=== PATIENT | male | born 1950 | race Caucasian/White ===

== ENCOUNTER 2018-03-16 15:04 | Observation (INO) ==
[2018-03-16] MEDS ORDERED: 0.9 % Sodium Chloride 1,000 ML IVC ONE ×2 (15:51→17:04)
--- NOTE | 2018-03-16 15:56 | Emergency Department Note ---
Disposition Clinical Impression: DKA (diabetic ketoacidoses) Qualifiers: Diabetes mellitus type: type 2 Diabetes mellitus complication detail: without coma Qualified Code(s): E11.10 - Type 2 diabetes mellitus with ketoacidosis without coma UTI (urinary tract infection) Qualifiers: Urinary tract infection type: acute cystitis Hematuria presence: without hematuria Qualified Code(s): N30.00 - Acute cystitis without hematuria Disposition: Admitted As Inpatient Condition: Good Referrals: Essie Ureña MD [Non-Partnered Physician] - Forms: ED Satisfaction Letter Time of Disposition: 17:28 General Adult HPI - General Stated complaint: Hyperglycemia Time Seen by Provider: 03/16/18 15:07 Source: patient Limitations: no limitations Nursing Notes Reviewed: Yes Vital Signs Reviewed: Yes - History of Present Illness HPI Narrative: 65 year old ambulatory diabetic man treated with metformin comes to the emergency room with his family because his home glucose checks were over 500. States that he never checks his sugars, but his family has urged him today secondary to him having an abnormal gait. He admits to dietary non compliance with copious candy and soda consumption. The patients complains of recent dizzyness and having a hard time finding his feet. He denies falls. He reports the dizziness as non-rotary but the feeling like he is going to fall. He complains of polydypsia and polyuria. He has an indwelling catheter. He also has a recent history in December of alcoholic delerium tremens withdrawl, last drink was in December. On that admission, he was found to have severe nutrient deficiencies and went into a 10 day coma. Other medical history includes prostate cancer, sleep apnea, and he is seeing a neurologist for neurocognitive decline. Denies fever, chills, nausea, vomiting, diarrhea. Onset (ago): day(s) Pain Scale: 0 - Related Data Allergies Allergy/AdvReac Type Severity Reaction Status Date / Time No Known Allergies Allergy Verified 03/16/18 15:17 Constitutional: Reports: as per HPI. Denies: fever, chills, weakness, weight change Eyes: Denies: eye pain, eye discharge, vision change Cardiovascular: Denies: chest pain, palpitations, dyspnea on exertion, edema, syncope Respiratory: Denies: cough, dyspnea, wheezes, hemoptysis, stridor Gastrointestinal: Denies: abdominal pain, nausea, vomiting, diarrhea, constipation, hematemesis, melena, hematochezia Genitourinary: Reports: as per HPI. Denies: urgency, dysuria, hematuria Musculoskeletal: Denies: back pain, neck pain, arthralgia, myalgia Integumentary: Denies: rash, abrasion, lesions Neurological: Denies: headache, weakness, numbness, paresthesias, confusion, abnormal gait, vertigo Psychiatric: Denies: anxiety, depression, suicidal thoughts, homicidal thoughts , auditory hallucinations, visual hallucinations Endocrine: Reports: as per HPI, polydipsia, polyuria Hematological/Lymphatic: Denies: easy bleeding, easy bruising Allergic/Immunologic: Denies: facial swelling, urticaria Past Medical History - Past Medical History Attestation: Yes The following information was validated with the patient. Source: patient Medical history: Reports: diabetes, hypertension Psychiatric history: Reports: no psych history - Social History Smoking Status: Former smoker Alcohol use: Reports: none (Alcohol addiction. Last drin december 19) Drug use: Reports: none Physical Exam - General Limitations: no limitations General appearance: alert - Head Head exam: atraumatic, normocephalic, normal inspection - Eye Eye exam: Present: normal appearance, PERRL, EOMI - ENT ENT exam: normal exam, normal oropharynx, mucous membranes moist - Neck Neck exam: Present: normal inspection, full ROM, trachea midline - Chest Chest inspection: Present: normal inspection, symmetric chest wall rise - Respiratory Respiratory exam: Present: normal lung sounds bilaterally - Cardiovascular Cardiovascular exam: Present: regular rate, normal rhythm, normal heart sounds - Abdominal Exam Abdominal exam: Present: soft, Non-Tender. Absent: tenderness, distention, guarding, rebound, rigidity - Extremities Exam Extremities exam: Present: normal inspection, full ROM. Absent: tenderness, pedal edema - Expanded Lower Extremity Exam Hip/Pelvis exam: Present: normal inspection, full ROM Lower leg exam: Present: normal inspection, full ROM - Back Exam Back exam: Present: normal inspection, full ROM. Absent: tenderness - Neurological Exam Neurological exam: Present: alert, oriented X3 - Psychiatric Psychiatric exam: Present: normal affect, normal mood Course Course Narrative: Bill patient appears well on exam. Lung sounds are clear heart tones are normal. He states he would not be here if it had not been for his glucose being elevated. He is friendly and joking throughout the exam. He states he was seen by his neurologist last week and has follow-up this week. He did have an abnormal gait at the time he saw neurology. To his understanding he has not had any imaging of his head. They did try to do an MRI at [place] for the family that the patient did not tolerate that. Did have a history of significant alcohol abuse. He has not had a drink since the beginning of December. He was recently started on Aricept however the family states they have not started this medication. Therefore this was for cognitive decline. The patient states that his gait has been unsteady for the past week. He reports it as a dizziness feeling however denies any rotary component or syncope. Lung sounds are clear heart tones are normal. Abdomen is soft and nontender. He has no swelling to his extremity is. We will get basic lab workup on patient. We did discuss the possibility of DKA. He has never been in this before. He does take metformin and is not compliant with a no sugar diet. He has an indwelling catheter with no [place] bag attached. He has this for a recurrent prostate cancer. He is supposed to have a bladder surgery prior to prostate surgery. The states that his urine has been dark with a foul odor recently. There have been no fevers - Reevaluation(s) Reevaluation #1: With a corrected sodium patient has a canine gap of 19. We will admit patient for DKA. Patient also has a UTI. We will provide patient with Rocephin at this time. We will admit patient to the hospitalist. Time: 17:05 - Consultations Consultation #1: Hospitalist accepted patient in stable condition. Time: 17:23 Vital Signs Temperature 97.7 F 03/16/18 15:17 Pulse Rate 83 03/16/18 15:17 Respiratory Rate 16 03/16/18 15:17 Blood Pressure 125/81 03/16/18 15:17 O2 Sat by Pulse Oximetry 98 03/16/18 15:17 Temperature 97.7 F 03/16/18 15:17 Pulse Rate 85 03/16/18 16:12 Respiratory Rate 18 03/16/18 16:12 Blood Pressure 125/81 03/16/18 15:17 O2 Sat by Pulse Oximetry 97 03/16/18 16:12 Oxygen Delivery Oxygen Delivery Room Air Medical Decision Making - Medical Records Medical records reviewed: Yes I reviewed the patient's medical records. - Lab Data Lab results reviewed: Yes I reviewed the patient's lab results. Result diagrams: 03/16/18 16:06 03/16/18 16:06 Lab Results 03/16/18 03/16/18 03/16/18 Range/Units 16:00 16:06 16:06 WBC 7.7 (4.3-11.1) K/mcL RBC 5.12 (4.19-5.50) M/mcL Hgb 13.7 (12.9-16.9) g/dL Hct 41.1 (37.5-50.1) % MCV 80.3 L (83.0-100.0) fL MCH 26.8 L (28.0-33.3) pg MCHC 33.3 (31.6-35.5) g/dL RDW 14.1 (11.5-14.5) % Plt Count 229 (140-400) K/mcL MPV 9.6 (9.4-12.4) fL Immature Gran % 0.3 (0-4) % Seg Neutrophils % 60.5 % Lymphocytes % 29.6 % Monocytes % 7.0 % Eosinophils % 2.2 % Basophils % 0.4 % Neutrophils # 4.7 (1.6-8.9) K/mcL Lymphocytes # 2.3 (0.6-4.6) K/mcL Monocytes # 0.5 (0.0-1.3) K/mcL Eosinophils # 0.2 (0.0-0.6) K/mcL Basophils # 0.0 (0.0-0.2) K/mcL VBG pH (7.32-7.42) pH Units VBG pCO2 (41-51) mmHg VBG pO2 (25-50) mmHg VBG HCO3 (21-27) mEq/L Sodium 127 L (136-145) mEq/L Potassium 3.9 (3.5-5.1) mEq/L Chloride 93 L (98-107) mEq/L Carbon Dioxide 23 (23-29) mEq/L BUN 14 (8-23) mg/dL Creatinine 1.16 (0.70-1.30) mg/dL Est GFR ( Amer) > 60 (> 60) Est GFR (Non-Af Amer) > 60 (> 60) BUN/Creatinine Ratio 12 (6-26) Glucose 602 H* (70-105) mg/dL Calculated Osmolality 292 (280-300) Calcium 9.8 (8.6-10.3) mg/dL Phosphorus 3.2 (2.7-4.5) mg/dL Magnesium 1.6 (1.6-2.6) mg/dL Total Bilirubin 0.6 (0.3-1.0) mg/dL AST 17 (13-39) Units/L ALT 18 (7-52) Units/L Alkaline Phosphatase 135 H (34-104) Units/L Ammonia (16-53) mcmol/L Serum Total Protein 7.9 (6.4-8.9) g/dL Albumin 4.1 (3.5-5.7) g/dL Globulin 3.8 H (2.4-3.5) g/dL Albumin/Globulin Ratio 1.1 (1.1-2.2) Beta-Hydroxybutyric Acd (0.02-0.27) mmol/L Urine Color Yellow (Yellow) Urine Clarity Cloudy A (Clear) Urine pH 6.0 (5.0-8.0) pH Units Ur Specific [place] > 1.030 H (1.010-1.025) Urine Protein Trace (Neg-Trace) mg/dL Urine Glucose (UA) >=1000 H (Normal) mg/dL Urine Ketones Trace H (Negative) mg/dL Urine Blood Trace H (Negative) Urine Nitrite Positive A (Negative) Urine Bilirubin Negative (Negative) Urine Urobilinogen Normal (Normal) mg/dL Ur Leukocyte Esterase Moderate H (Negative) 03/16/18 03/16/18 03/16/18 Range/Units 16:06 16:06 16:23 WBC (4.3-11.1) K/mcL RBC (4.19-5.50) M/mcL Hgb (12.9-16.9) g/dL Hct (37.5-50.1) % MCV (83.0-100.0) fL MCH (28.0-33.3) pg MCHC (31.6-35.5) g/dL RDW (11.5-14.5) % Plt Count (140-400) K/mcL MPV (9.4-12.4) fL Immature Gran % (0-4) % Seg Neutrophils % % Lymphocytes % % Monocytes % % Eosinophils % % Basophils % % Neutrophils # (1.6-8.9) K/mcL Lymphocytes # (0.6-4.6) K/mcL Monocytes # (0.0-1.3) K/mcL Eosinophils # (0.0-0.6) K/mcL Basophils # (0.0-0.2) K/mcL VBG pH 7.31 L (7.32-7.42) pH Units VBG pCO2 48 (41-51) mmHg VBG pO2 41 (25-50) mmHg VBG HCO3 25 (21-27) mEq/L Sodium (136-145) mEq/L Potassium (3.5-5.1) mEq/L Chloride (98-107) mEq/L Carbon Dioxide (23-29) mEq/L BUN (8-23) mg/dL Creatinine (0.70-1.30) mg/dL Est GFR ( Amer) (> 60) Est GFR (Non-Af Amer) (> 60) BUN/Creatinine Ratio (6-26) Glucose (70-105) mg/dL Calculated Osmolality (280-300) Calcium (8.6-10.3) mg/dL Phosphorus (2.7-4.5) mg/dL Magnesium (1.6-2.6) mg/dL Total Bilirubin (0.3-1.0) mg/dL AST (13-39) Units/L ALT (7-52) Units/L Alkaline Phosphatase (34-104) Units/L Ammonia 30 (16-53) mcmol/L Serum Total Protein (6.4-8.9) g/dL Albumin (3.5-5.7) g/dL Globulin (2.4-3.5) g/dL Albumin/Globulin Ratio (1.1-2.2) Beta-Hydroxybutyric Acd 0.90 H (0.02-0.27) mmol/L Urine Color (Yellow) Urine Clarity (Clear) Urine pH (5.0-8.0) pH Units Ur Specific [place] (1.010-1.025) Urine Protein (Neg-Trace) mg/dL Urine Glucose (UA) (Normal) mg/dL Urine Ketones (Negative) mg/dL Urine Blood (Negative) Urine Nitrite (Negative) Urine Bilirubin (Negative) Urine Urobilinogen (Normal) mg/dL Ur Leukocyte Esterase (Negative) - Radiology Data Radiology results reviewed: Yes I reviewed the patient's radiology results. Chest X-Ray 03/16/18 15:39 IMPRESSION: No acute process. D/ / Kev Plata MD / Kev Plata MD Interpreting Provider: Kev Plata MD Head CT 03/16/18 15:44 IMPRESSION: No acute intracranial abnormality. D/ / Caitie Villar MD / Caitie Villar MD Interpreting Provider: Caitie Villar MD - EKG Data EKG #1 EKG attestation: Yes I reviewed and interpreted this EKG. EKG results narrative: Normal sinus rhythm at a rate of 78. AK interval is 190. QRS duration is 85. QT is 382. QTC is 436. No signs of acute ischemia. No previous EKG to compare to. Good R-wave progression. Does have occasional PAC.
--- NOTE | 2018-03-16 16:06 | Emergency Department Note ---
Disposition Clinical Impression: DKA (diabetic ketoacidoses), UTI (urinary tract infection) Disposition: Admitted As Inpatient Referrals: Essie Ureña MD [Primary Care Provider] - Forms: ED Satisfaction Letter General Adult HPI - General Chief complaint: ED Dizziness Stated complaint: Hyperglycemia Time Seen by Provider: 03/16/18 15:07 Source: patient Limitations: no limitations - History of Present Illness Pain Scale: 0 - Related Data Allergies Allergy/AdvReac Type Severity Reaction Status Date / Time No Known Allergies Allergy Verified 03/16/18 15:17 Past Medical History - Past Medical History Medical history: Reports: diabetes, hypertension Psychiatric history: Reports: no psych history - Social History Smoking Status: Never smoker Alcohol use: Reports: none Drug use: Reports: none Physical Exam - General Limitations: no limitations General appearance: alert Course Vital Signs Temperature 97.7 F 03/16/18 15:17 Pulse Rate 83 03/16/18 15:17 Respiratory Rate 16 03/16/18 15:17 Blood Pressure 125/81 03/16/18 15:17 O2 Sat by Pulse Oximetry 98 03/16/18 15:17 Temperature 97.7 F 03/16/18 15:17 Pulse Rate 85 03/16/18 16:12 Respiratory Rate 18 03/16/18 16:12 Blood Pressure 125/81 03/16/18 15:17 O2 Sat by Pulse Oximetry 97 03/16/18 16:12 Oxygen Delivery Oxygen Delivery Room Air Medical Decision Making - MDM Narrative Medical decision making narrative: pt found to be in DKA. will start insulin gtt. admit tx for UTI with rocephin - Medical Records Medical records reviewed: Yes I reviewed the patient's medical records. - Lab Data Lab results reviewed: Yes I reviewed the patient's lab results. Result diagrams: 03/16/18 16:06 03/16/18 16:06 Lab Results 03/16/18 03/16/18 03/16/18 Range/Units 16:00 16:06 16:06 WBC 7.7 (4.3-11.1) K/mcL RBC 5.12 (4.19-5.50) M/mcL Hgb 13.7 (12.9-16.9) g/dL Hct 41.1 (37.5-50.1) % MCV 80.3 L (83.0-100.0) fL MCH 26.8 L (28.0-33.3) pg MCHC 33.3 (31.6-35.5) g/dL RDW 14.1 (11.5-14.5) % Plt Count 229 (140-400) K/mcL MPV 9.6 (9.4-12.4) fL Immature Gran % 0.3 (0-4) % Seg Neutrophils % 60.5 % Lymphocytes % 29.6 % Monocytes % 7.0 % Eosinophils % 2.2 % Basophils % 0.4 % Neutrophils # 4.7 (1.6-8.9) K/mcL Lymphocytes # 2.3 (0.6-4.6) K/mcL Monocytes # 0.5 (0.0-1.3) K/mcL Eosinophils # 0.2 (0.0-0.6) K/mcL Basophils # 0.0 (0.0-0.2) K/mcL VBG pH (7.32-7.42) pH Units VBG pCO2 (41-51) mmHg VBG pO2 (25-50) mmHg VBG HCO3 (21-27) mEq/L Sodium 127 L (136-145) mEq/L Potassium 3.9 (3.5-5.1) mEq/L Chloride 93 L (98-107) mEq/L Carbon Dioxide 23 (23-29) mEq/L BUN 14 (8-23) mg/dL Creatinine 1.16 (0.70-1.30) mg/dL Est GFR ( Amer) > 60 (> 60) Est GFR (Non-Af Amer) > 60 (> 60) BUN/Creatinine Ratio 12 (6-26) Glucose 602 H* (70-105) mg/dL Calculated Osmolality 292 (280-300) Calcium 9.8 (8.6-10.3) mg/dL Phosphorus 3.2 (2.7-4.5) mg/dL Magnesium 1.6 (1.6-2.6) mg/dL Total Bilirubin 0.6 (0.3-1.0) mg/dL AST 17 (13-39) Units/L ALT 18 (7-52) Units/L Alkaline Phosphatase 135 H (34-104) Units/L Ammonia (16-53) mcmol/L Serum Total Protein 7.9 (6.4-8.9) g/dL Albumin 4.1 (3.5-5.7) g/dL Globulin 3.8 H (2.4-3.5) g/dL Albumin/Globulin Ratio 1.1 (1.1-2.2) Beta-Hydroxybutyric Acd (0.02-0.27) mmol/L Urine Color Yellow (Yellow) Urine Clarity Cloudy A (Clear) Urine pH 6.0 (5.0-8.0) pH Units Ur Specific [place] > 1.030 H (1.010-1.025) Urine Protein Trace (Neg-Trace) mg/dL Urine Glucose (UA) >=1000 H (Normal) mg/dL Urine Ketones Trace H (Negative) mg/dL Urine Blood Trace H (Negative) Urine Nitrite Positive A (Negative) Urine Bilirubin Negative (Negative) Urine Urobilinogen Normal (Normal) mg/dL Ur Leukocyte Esterase Moderate H (Negative) 03/16/18 03/16/18 03/16/18 Range/Units 16:06 16:06 16:23 WBC (4.3-11.1) K/mcL RBC (4.19-5.50) M/mcL Hgb (12.9-16.9) g/dL Hct (37.5-50.1) % MCV (83.0-100.0) fL MCH (28.0-33.3) pg MCHC (31.6-35.5) g/dL RDW (11.5-14.5) % Plt Count (140-400) K/mcL MPV (9.4-12.4) fL Immature Gran % (0-4) % Seg Neutrophils % % Lymphocytes % % Monocytes % % Eosinophils % % Basophils % % Neutrophils # (1.6-8.9) K/mcL Lymphocytes # (0.6-4.6) K/mcL Monocytes # (0.0-1.3) K/mcL Eosinophils # (0.0-0.6) K/mcL Basophils # (0.0-0.2) K/mcL VBG pH 7.31 L (7.32-7.42) pH Units VBG pCO2 48 (41-51) mmHg VBG pO2 41 (25-50) mmHg VBG HCO3 25 (21-27) mEq/L Sodium (136-145) mEq/L Potassium (3.5-5.1) mEq/L Chloride (98-107) mEq/L Carbon Dioxide (23-29) mEq/L BUN (8-23) mg/dL Creatinine (0.70-1.30) mg/dL Est GFR ( Amer) (> 60) Est GFR (Non-Af Amer) (> 60) BUN/Creatinine Ratio (6-26) Glucose (70-105) mg/dL Calculated Osmolality (280-300) Calcium (8.6-10.3) mg/dL Phosphorus (2.7-4.5) mg/dL Magnesium (1.6-2.6) mg/dL Total Bilirubin (0.3-1.0) mg/dL AST (13-39) Units/L ALT (7-52) Units/L Alkaline Phosphatase (34-104) Units/L Ammonia 30 (16-53) mcmol/L Serum Total Protein (6.4-8.9) g/dL Albumin (3.5-5.7) g/dL Globulin (2.4-3.5) g/dL Albumin/Globulin Ratio (1.1-2.2) Beta-Hydroxybutyric Acd 0.90 H (0.02-0.27) mmol/L Urine Color (Yellow) Urine Clarity (Clear) Urine pH (5.0-8.0) pH Units Ur Specific [place] (1.010-1.025) Urine Protein (Neg-Trace) mg/dL Urine Glucose (UA) (Normal) mg/dL Urine Ketones (Negative) mg/dL Urine Blood (Negative) Urine Nitrite (Negative) Urine Bilirubin (Negative) Urine Urobilinogen (Normal) mg/dL Ur Leukocyte Esterase (Negative) - Radiology Data Radiology results reviewed: Yes I reviewed the patient's radiology results. Critical Care Time Critical Care Time: Yes Total Critical Care Time: 35 Attestation: CC time of 35 min spent in med management of DKA; Gap of 19. Attestation Statement - Attestation Attestation: I examined this patient and my medical decision-making was reviewed with the Resident Physician. I agree with the documented findings, disposition and treatment plan as described except to the extent set forth below. 67-year-old male presents emergency room for concerns for elevated blood sugars. He is a type II diabetic. Sugars are running in the 500s associated with polyuria and polydipsia. Denies any vomiting. No diarrhea. Patient will be worked up for possible DKA versus isolated hyperglycemia. He also admits that he has been somewhat unsteady with his gait and tripping recently. Denies any focal motor or sensory deficits. No chest pain or shortness of breath. He also currently is getting treatment for bladder problems secondary to prostate cancer. He says he follows with a urologist in [place] he thought but cannot remember his name. He does have a catheter in place. This is chronic for him. He looks well otherwise. His vitals are stable. EKG did not show any significant findings. We will check screening lab work as well as workup for possible DKA.
[2018-03-16 16:24] LABS: Basophils % 0.4 %; Eosinophils # 0.2 K/mcL (0.0-0.6); Eosinophils % 2.2 %; Hematocrit 41.1 % (37.5-50.1); Hemoglobin 13.7 g/dL (12.9-16.9); Immature Granulocytes % 0.3 % (0-4); Lymphocytes # 2.3 K/mcL (0.6-4.6); Lymphocytes % 29.6 %; Mean Corpuscular HGB Conc 33.3 g/dL (31.6-35.5); Mean Corpuscular Hemoglobin 26.8 pg (28.0-33.3); Mean Corpuscular Volume 80.3 fL (83.0-100.0); Mean Platelet Volume 9.6 fL (9.4-12.4); Monocytes # 0.5 K/mcL (0.0-1.3); Neutrophils # 4.7 K/mcL (1.6-8.9); Platelet Count 229 K/mcL (140-400); Red Blood Count 5.12 M/mcL (4.19-5.50); Red Cell Distribution Width 14.1 % (11.5-14.5); Segmented Neutrophils % 60.5 %
[2018-03-16 16:26] LABS: VBG HCO3 25 mEq/L (21-27); VBG PCO2 48 mmHg (41-51); VBG PH 7.31 pH Units (7.32-7.42); VBG PO2 41 mmHg (25-50)
[2018-03-16 16:37] LABS: Color,Urine Yellow (Yellow)
[2018-03-16 16:38] LABS: Bilirubin,Urine Negative (Negative); Blood,Urine Trace (Negative); Clarity,Urine Cloudy (Clear); Glucose,Urine (UA) >=1000 mg/dL (Normal); Ketones,Urine Trace mg/dL (Negative); Leukocyte Esterase,Urine Moderate (Negative); Nitrite,Urine Positive (Negative); Protein,Urine Trace mg/dL (Neg-Trace); Specific Gravity,Urine > 1.030 (1.010-1.025); Urobilinogen,Urine Normal (Normal)
[2018-03-16 16:57] LABS: Alanine Aminotransferase 18 Units/L (7-52); Albumin 4.1 g/dL (3.5-5.7); Albumin/Globulin Ratio 1.1 (1.1-2.2); Alkaline Phosphatase 135 Units/L (34-104); Aspartate Amino Transferase 17 Units/L (13-39); BUN/Creatinine Ratio 12 (6-26); Bilirubin,Total 0.6 mg/dL (0.3-1.0); Blood Urea Nitrogen 14 mg/dL (8-23); Calcium 9.8 mg/dL (8.6-10.3); Carbon Dioxide 23 mEq/L (23-29); Chloride 93 mEq/L (98-107); Globulin 3.8 g/dL (2.4-3.5); Glucose 602 mg/dL (70-105); Magnesium 1.6 mg/dL (1.6-2.6); Osmolality,Calculated 292 (280-300); Phosphorous 3.2 mg/dL (2.7-4.5); Potassium 3.9 mEq/L (3.5-5.1); Sodium 127 mEq/L (136-145); Total Protein 7.9 g/dL (6.4-8.9); eGFR For Non-African Americans > 60 (> 60)
[2018-03-16] MEDS ORDERED: Insulin Regular, Human 100 UNIT/ML SQ ONE (17:00)
[2018-03-16 17:03] LABS: Bacteria,Urine Few per hpf (None-Few); Hyaline Casts,Urine None Seen per lpf (None-Few); Squamous Epithelial Cell,Urine Many per lpf (None-Few); WBC,Urine TNTC per hpf (0-3)
[2018-03-16] MEDS ORDERED: *HR* Dextrose 50 % in Water (Syg) 50 ML SYRINGE IVP PRN ×3 (17:03→21:12)
[2018-03-16] MEDS ORDERED: cefTRIAXone 1,000 MG in Water for inj. (sterile) 20 ML 10 ML IVP ONE (17:06)
[2018-03-16 17:13] LABS: RBC,Urine 0-3 per hpf (0-3)
[2018-03-16] MEDS ORDERED: Insulin Human Regular 100 UNIT in 0.9 % Sodium Chloride 100 ML IVC SCH (17:15)
[2018-03-16] MEDS ORDERED: Naloxone 0.4 MG/ML INJ IVP PRN (17:40)
[2018-03-16] MEDS ORDERED: D5% in 0.45% NACL 1,000 ML IVC PRN (17:45)
[2018-03-16] MEDS ORDERED: Insulin Regular, Human 100 UNIT/ML IV PRN (17:45)
--- NOTE | 2018-03-16 18:14 | Internal Med History&Physical ---
Date of Encounter: 03/16/18 Time of Encounter: 18:00 Internal Medicine - H&P: HPI Chief complaint: Worsening thirst, tiredness and weakness History of present illness: Mr. Arauz is a 67 year old male with pmh of type 2 diabetes, hypertension, prostate cancer presenting with complaints of recent dizziness , worsening thirst and increased fluid consumption for about a week. Patient's notes that he has been progressively getting weaker and she says he has been drinking a lot fof water lately. On the recommendation of her daughter, she checked his blood sugar and noted it to be 590. She called her PCP who recommended he be brought to the ER. He admits to fatigue and dizziness. Denies any abdominal pain , nausea, vomiting, fevers and chills. He has an indwelling catheter that was placed on february 24 pending urologic intervention for urinary retention due to his prostate CA. In the ER, he was started on an insulin drip and is being admitted for further management Past Med Surg Social Fam HX - Past Medical History Medical history: diabetes, hypertension Psychiatric history: no psych history - Social History Smoking Status: Former smoker Alcohol use: none (Alcohol addiction. Last drin december 19) Drug use: none Internal Medicine - H&P: Meds Aspirin Enteric Coated [Aspirin EC] 81 mg PO DAILY 03/16/18 [History] Atenolol [Tenormin] 50 mg PO BID 03/16/18 [History] Cholecalciferol (D-3) [Vitamin D] 2,000 unit PO DAILY 03/16/18 [History] Metformin HCl [Metformin HCl ER] 500 mg PO BID 03/16/18 [History] Multivitamin [One Daily Essential] 1 tab PO DAILY 03/16/18 [History] Pantoprazole Sodium 40 mg PO DAILY 03/16/18 [History] amLODIPine [Norvasc] 5 mg PO DAILY 03/16/18 [History] 3 Allergy/AdvReac Type Severity Reaction Status Date / Time No Known Allergies Allergy Verified 03/16/18 17:32 All Systems PM: A 10-system review of systems was performed and is negative for pertinent findings except as documented above in the HPI. - Constitutional Constitutional: lethargy, malaise, weakness, no chills, no fever(s), no night sweats Additional comments: Increased thirst - EENT Eyes: no change in vision, no discharge, no pain, no photophobia Ears: no ear discharge, no ear pain, no tinnitus Nose, mouth and throat: no dysphagia, no nasal discharge, no neck pain, no sore throat - Cardiovascular Cardiovascular ROS IM: no chest pain, no diaphoresis, no dyspnea, no lightheadedness, no palpitations, no syncope - Respiratory Respiratory: no cough, no dyspnea, no wheezing, no excessive phlegm production - Gastrointestinal Gastrointestinal: no abdominal pain, no diarrhea, no hematemesis, no hematochezia, no melena, no nausea, no vomiting - Genitourinary Genitourinary ROS male: difficulty urinating - Musculoskeletal Musculoskeletal ROS IM: no numbness, no tingling - Integumentary Integumentary IM: no rash, no unusual bruising - Neurological Neurological ROS: no confusion, no convulsions, no focal weakness, no numbness, no tingling, no tremor(s) - Hematologic/Lymphatic Hematologic/Lymphatic: no easy bruising - Constitutional Vitals: Temp Pulse Resp BP Pulse Ox 97.7 F 76 18 132/79 100 03/16/18 15:17 03/16/18 17:31 03/16/18 17:31 03/16/18 17:31 03/16/18 17:31 Exam: Appears lethargic - Head Head exam: Present: atraumatic, normocephalic - Eye Eye exam: Present: PERRL, conjuntiva pink, sclera anicteric Pupils: Present: PERRL - Neck Neck exam general surgery: Present: supple, trachea midline. Absent: lymphadenopathy - Respiratory Respiratory exam: Present: CTAB. Absent: accessory muscle use, rales, rhonchi, wheezes - Cardiovascular Cardiovascular exam: Present: RRR, +S1, +S2. Absent: diastolic murmur, gallop, rubs, systolic murmur - GI/Abdominal GI/Abdominal exam: Present: normal bowel sounds, soft, no peritoneal signs. Absent: distended, tenderness - Additional comments: catheter in place - Extremities Exam Extremities exam: Present: warm, radial pulses palpable and symmetrical. Absent : calf tenderness, cyanotic, pedal edema - Neurological Exam Neurological exam: Present: CN II-XII intact, oriented X3, no focal deficits. Absent: pronater drift, facial droop, speech deficit - Skin Skin exam: Present: dry, intact Internal Med - H&P Results - Labs CBC & Chem 7: 03/16/18 16:06 03/16/18 16:06 Labs: Short CBC 03/16/18 Range/Units 16:06 WBC 7.7 (4.3-11.1) K/mcL Hgb 13.7 (12.9-16.9) g/dL Hct 41.1 (37.5-50.1) % Plt Count 229 (140-400) K/mcL Neutrophils # 4.7 (1.6-8.9) K/mcL BMP 03/16/18 16:06 Sodium 127 L Potassium 3.9 Chloride 93 L Carbon Dioxide 23 BUN 14 Creatinine 1.16 Glucose 602 H* Calcium 9.8 Liver Function 03/16/18 Range/Units 16:06 Total Bilirubin 0.6 (0.3-1.0) mg/dL AST 17 (13-39) Units/L ALT 18 (7-52) Units/L Alkaline Phosphatase 135 H (34-104) Units/L Albumin 4.1 (3.5-5.7) g/dL Urine 03/16/18 Range/Units 16:00 Urine Color Yellow (Yellow) Urine Clarity Cloudy A (Clear) Urine pH 6.0 (5.0-8.0) pH Units Ur Specific [place] > 1.030 H (1.010-1.025) Urine Protein Trace (Neg-Trace) mg/dL Urine Glucose (UA) >=1000 H (Normal) mg/dL - ABG Interpretation ABG results: 03/16/18 16:23 VBG pH 7.31 L VBG pCO2 48 VBG pO2 41 VBG HCO3 25 - Impressions ITS Impressions Chest X-Ray 03/16/18 15:39 IMPRESSION: No acute process. D/ / Kev Plata MD / Kev Plata MD Interpreting Provider: Kev Plata MD Head CT 03/16/18 15:44 IMPRESSION: No acute intracranial abnormality. D/ / Caitie Villar MD / Caitie Villar MD Interpreting Provider: Caitie Villar MD - Assessment and plan (1) Uncontrolled type 2 diabetes mellitus with hyperglycemia Current Visit: Yes Status: Acute Assessment and plan: Pt has elevated blood sugar in the 600s with impending DKA. Has elevated beta hydroxybutyric acid but normal anion gap Start on DKA protocol with insulin drip. Obtain hemoglobin A1c. Monitor fingersticks and transition to subcutaneous insulin once sugars drop below 250 (2) Complicated urinary tract infection Current Visit: Yes Status: Acute Assessment and plan: Has indwelling catheter with multiple WBC. Will start on Iv ceftriaxone (3) Hypertension Current Visit: Yes Status: Acute Assessment and plan: Start on amlodipine and atenolol Qualifiers: Qualified Code(s): I10 - Essential (primary) hypertension (4) DVT prophylaxis Current Visit: Yes Status: Acute Assessment and plan: On heparin sc - Time Spent With Patient Total time spent is greater than 50% in coordination of care (as documented) at patient's floor/unit and/or counseling patient:
[2018-03-16 18:22] LABS: Estimated Average Glucose 309 mg/dl; Hemoglobin A1C 12.4 %
[2018-03-16 20:48] LABS: BUN/Creatinine Ratio 11 (6-26); Blood Urea Nitrogen 11 mg/dL (8-23); Calcium 9.3 mg/dL (8.6-10.3); Carbon Dioxide 24 mEq/L (23-29); Chloride 102 mEq/L (98-107); Glucose 316 mg/dL (70-105); Osmolality,Calculated 289 (280-300); Potassium 3.3 mEq/L (3.5-5.1); Sodium 134 mEq/L (136-145); eGFR For Non-African Americans > 60 (> 60)
[2018-03-16] MEDS ORDERED: Dextrose Gel 15 GM/37.5 ML TUBE PO PRN ×2 (21:12)
[2018-03-16] MEDS ORDERED: D5% in Water 1,000 ML IVC PRN (21:12)
[2018-03-16] MEDS ORDERED: Insulin DETEMIR 100 UNIT/ML X5UNITS SQ SCH (21:15)
[2018-03-16] MEDS: Insulin LISPRO 300 UNITS/3 ML VIAL SQ SCH (22:26)
[2018-03-17] MEDS ORDERED: *HR* Heparin 5,000 UNIT/ML VIAL SQ SCH (06:00)
[2018-03-17 06:13] LABS: Basophils % 0.6 %; Eosinophils # 0.2 K/mcL (0.0-0.6); Eosinophils % 4.1 %; Hematocrit 36.6 % (37.5-50.1); Hemoglobin 12.2 g/dL (12.9-16.9); Immature Granulocytes % 0.2 % (0-4); Lymphocytes # 1.8 K/mcL (0.6-4.6); Mean Corpuscular HGB Conc 33.3 g/dL (31.6-35.5); Mean Corpuscular Hemoglobin 26.8 pg (28.0-33.3); Mean Corpuscular Volume 80.3 fL (83.0-100.0); Mean Platelet Volume 9.3 fL (9.4-12.4); Monocytes # 0.5 K/mcL (0.0-1.3); Monocytes % 9.1 %; Neutrophils # 2.6 K/mcL (1.6-8.9); Platelet Count 184 K/mcL (140-400); Red Blood Count 4.56 M/mcL (4.19-5.50); Red Cell Distribution Width 14.1 % (11.5-14.5)
[2018-03-17 06:20] LABS: BUN/Creatinine Ratio 8 (6-26); Blood Urea Nitrogen 9 mg/dL (8-23); Calcium 9.5 mg/dL (8.6-10.3); Carbon Dioxide 23 mEq/L (23-29); Chloride 107 mEq/L (98-107); Glucose 223 mg/dL (70-105); Magnesium 1.7 mg/dL (1.6-2.6); Osmolality,Calculated 290 (280-300); Phosphorous 2.9 mg/dL (2.7-4.5); Potassium 3.7 mEq/L (3.5-5.1); Sodium 137 mEq/L (136-145); eGFR For Non-African Americans > 60 (> 60)
[2018-03-17] MEDS: Insulin LISPRO 300 UNITS/3 ML VIAL SQ SCH ×4 (08:42→12:22)
--- NOTE | 2018-03-17 08:57 | Internal Med Progress Note ---
Hospitalist Progress Note - Encounter Date of Encounter: 03/17/18 Time of Encounter: 09:00 - Exam Vitals: Temp Pulse Resp BP Pulse Ox 98.4 F 70 19 148/83 97 03/17/18 07:03 03/17/18 07:03 03/17/18 07:03 03/17/18 07:03 03/17/18 07:03 - Time Spent with Patient Total time spent is greater than 50% in coordination of care (as documented) at patient's floor/unit and/or counseling patient: Internal Medicine: Result - Labs CBC & Chem 7: 03/17/18 05:49 03/17/18 05:49 Labs: Short CBC 03/17/18 Range/Units 05:49 WBC 5.1 (4.3-11.1) K/mcL Hgb 12.2 L D (12.9-16.9) g/dL Hct 36.6 L (37.5-50.1) % Plt Count 184 (140-400) K/mcL Neutrophils # 2.6 (1.6-8.9) K/mcL BMP 03/16/18 03/17/18 20:15 05:49 Sodium 134 L 137 Potassium 3.3 L 3.7 Chloride 102 107 Carbon Dioxide 24 23 BUN 11 9 Creatinine 1.02 1.06 Glucose 316 H 223 H Calcium 9.3 9.5 Consult Discharge Plan - Plan Referrals: Essie Ureña MD [Primary Care Provider] -
[2018-03-17] MEDS ORDERED: Multivit/Ca/Min/Fe/FA 1 TAB TABLET PO SCH (09:00)
[2018-03-17] MEDS ORDERED: Aspirin Enteric Coated 81 MG Tablet PO SCH (09:00)
[2018-03-17] MEDS ORDERED: Cholecalciferol (D-3) 1,000 UNIT TABLET PO SCH (09:00)
[2018-03-17] MEDS ORDERED: amLODIPine 5 MG TABLET PO SCH (09:00)
[2018-03-17 10:05] VITALS: BP 149/86
--- NOTE | 2018-03-17 12:11 | Discharge Summary ---
<Tim Levi - Last Filed: 03/17/18 16:18> Date of Encounter: 03/17/18 Time of Encounter: 10:00 - Discharge Diagnosis (1) DKA (diabetic ketoacidoses) Priority: Primary Status: Acute Qualifiers: Diabetes mellitus type: type 2 Diabetes mellitus complication detail: without coma Qualified Code(s): E11.10 - Type 2 diabetes mellitus with ketoacidosis without coma (2) Hypertension Priority: Secondary Status: Acute Qualifiers: Qualified Code(s): I10 - Essential (primary) hypertension (3) UTI (urinary tract infection) Priority: Secondary Status: Acute Qualifiers: Urinary tract infection type: acute cystitis Hematuria presence: without hematuria Qualified Code(s): N30.00 - Acute cystitis without hematuria (4) Uncontrolled type 2 diabetes mellitus with hyperglycemia Priority: Secondary Status: Acute Hospital course: Mr. Arauz is a 67 year old male PMHx DM2, HTN, prostate cancer, presents with dizziness, thirst, polydipsia x 1 week. blood sugar at home was 590. He also admitted to fatigue, dizziness, but denied abdominal pain, n/v/f/c. Patient has an indwelling catheter pending urologic intervention for urinary retention 2/2 prostate CA. CXR and CT head on admission were unremarkable. Laboratory work demonstrated patient had symptoms of DKA with increasing normal gap. Patient was treated with 2L NS, Insulin drip + glucose and eventually switched to SQ insulin. His symptoms have resolved and he is back to baseline. His K+ is stable at 3.7. HbA1c was found to be 12.4 compared to HbA1c = 6 that was taken 2 months ago. Patient was also found to have UTI with indwelling catheter and started on Ceftriaxone day #1, pending culture. Patient is stable and would like to go home. We will discharge him with omnicef 300mg PO BID for 5 days and start insulin therapy due to HbA1c > 10 with Aspart and levemir. Follow up with outpatient PCP for better glycemic control Discharge discussed with: patient, family Time spent discussing smoking cessation with patient: 3 to 10 minutes - Time Spent with Patient Total time spent providing and/or coordinating discharge services: Greater than 30 minutes - Discharge Medications Prescriptions: Cefdinir [Omnicef] 300 mg PO BID 5 Days #10 capsule Insulin ASPART [Novolog Flexpen] 7 unit SQ TID #5 insuln.pen Insulin DETEMIR [Levemir Flextouch] 20 unit SQ DAILY #5 insuln.pen Home Medications: Aspirin Enteric Coated [Aspirin EC] 81 mg PO DAILY 03/16/18 [History] Atenolol [Tenormin] 50 mg PO BID 03/16/18 [History] Cholecalciferol (D-3) [Vitamin D] 2,000 unit PO DAILY 03/16/18 [History] Metformin HCl [Metformin HCl ER] 500 mg PO BID 03/16/18 [History] Multivitamin [One Daily Essential] 1 tab PO DAILY 03/16/18 [History] Pantoprazole Sodium 40 mg PO DAILY 03/16/18 [History] amLODIPine [Norvasc] 5 mg PO DAILY 03/16/18 [History] Cefdinir [Omnicef] 300 mg PO BID 5 Days #10 capsule 03/17/18 [Rx] Insulin ASPART [Novolog Flexpen] 7 unit SQ TID #5 insuln.pen 03/17/18 [Rx] Insulin DETEMIR [Levemir Flextouch] 20 unit SQ DAILY #5 insuln.pen 03/17/18 [Rx] Allergies/Adverse Reactions: 3 Allergy/AdvReac Type Severity Reaction Status Date / Time No Known Allergies Allergy Verified 03/16/18 17:32 Date of admission: 03/16/18 19:39 Primary care physician: Essie Ureña MD Discharging clinician: Tim Levi Anticipated date of discharge: 03/17/18 - Constitutional Vitals: Temp Pulse Resp BP Pulse Ox 98.3 F 73 17 149/86 96 03/17/18 10:03 03/17/18 10:03 03/17/18 10:03 03/17/18 10:03 03/17/18 10:03 Exam: - Head Head exam: Present: atraumatic, normocephalic - Eye Eye exam: Present: conjuntiva pink, sclera anicteric - Neck Neck exam general surgery: Present: supple, trachea midline. Absent: lymphadenopathy - Respiratory Respiratory exam: Present: CTAB. Absent: accessory muscle use, rales, rhonchi, wheezes - Cardiovascular Cardiovascular exam: Present: RRR, +S1, +S2. Absent: diastolic murmur, gallop, rubs, systolic murmur - GI/Abdominal GI/Abdominal exam: Present: normal bowel sounds, soft, no peritoneal signs. Absent: distended, tenderness - Additional comments: catheter in place - Extremities Exam Extremities exam: Present: warm, radial pulses palpable and symmetrical. Absent : calf tenderness, cyanotic, pedal edema - Neurological Exam Neurological exam: Present: CN II-XII intact, oriented X3, no focal deficits. Absent: pronater drift, facial droop, speech deficit - Skin Skin exam: Present: dry, intact - Patient Status Disposition: Home, Self-Care Condition: Good Functional capacity at discharge: independent ambulation Overall status at discharge: patient is back to baseline - Discharge Instructions Instructions: Cefdinir (By mouth), Insulin Aspart, Recombinant (Injection), Insulin Detemir (Injection), Insulin Glargine (Injection), How to Check Your Blood Sugar (DC), Diabetes Mellitus Type 2 in Adults (GEN), Giving an Insulin Injection (DC) Follow Up With: Essie Ureña MD [Primary Care Provider] - - Diet and Activity Activity: increase activity as tolerated Diet: advance to your usual diet <Regan Schaeffer - Last Filed: 03/17/18 17:42> Date of Encounter: 03/17/18 - Discharge Diagnosis (1) Uncontrolled type 2 diabetes mellitus with hyperglycemia Status: Acute (2) Complicated urinary tract infection Status: Acute (3) Hypertension Status: Acute Qualifiers: Qualified Code(s): I10 - Essential (primary) hypertension (4) DVT prophylaxis Status: Acute Hospital course: Mr. Arauz is a 67 year old male - Time Spent with Patient Total time spent providing and/or coordinating discharge services: Date of admission: 03/16/18 19:39 Primary care physician: Essie Ureña MD - Constitutional Vitals: Temp Pulse Resp BP Pulse Ox 98.3 F 73 17 149/86 96 03/17/18 10:03 03/17/18 10:03 03/17/18 10:03 03/17/18 10:03 03/17/18 10:03 - Attending Attestation Seen and assessed Gen - Awake, alert, oriented x 3, no acute distress HEENT - NCAT, PERRLA, EOMI, hearing grossly intact, oropharynx benign CV - RRR, normal S1 and S2, no M/R/G, no BLE edema Resp - Normal WOB, CTAB, no W/R/R GI - Soft, NT/ND, no masses, normal bowel sounds, Skin - Warm, dry, no rashes/lesions/ulcers Psych - Normal mood and affect, no depression or anxiety Was managed for uncontrolled diabetes with hyperglycemia and impending DKA. Was started on insulin drip and transitioned to subcutaneous lantus and insulin aspart. Agree with discharge summary per resident
[2018-03-17] MEDS ORDERED: cefTRIAXone 1,000 MG in Water for inj. (sterile) 20 ML 10 ML IVP SCH (17:00)
[2018-03-17] MEDS ORDERED: Insulin LISPRO 300 UNITS/3 ML VIAL SQ SCH (21:00)
--- NOTE | 2018-03-18 09:50 | Electrocardiograph Report ---
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
== END 2018-03-17 15:24 | disposition home or self-care (01) ==
LOC: 2SOUTHHOLD 15:04 → EMEROOARM 15:04 → 2SOUTHHOLD 19:59
PROVIDERS: ADMIT Internal Medicine; ATTEND Internal Medicine

== ENCOUNTER 2018-06-22 09:48 | Observation (INO) ==
[2018-06-22] MEDS ORDERED: Isovue-370 500 ML BOTTLE IVP ONE (10:01)
[2018-06-22 10:25] LABS: Hematocrit 35.8 % (37.5-50.1); Mean Corpuscular HGB Conc 30.7 g/dL (31.6-35.5); Mean Corpuscular Hemoglobin 24.4 pg (28.0-33.3); Mean Corpuscular Volume 79.6 fL (83.0-100.0); Mean Platelet Volume 8.8 fL (9.4-12.4); Platelet Count 240 K/mcL (140-400); Red Cell Distribution Width 14.3 % (11.5-14.5)
--- NOTE | 2018-06-22 10:38 | Emergency Department Note ---
Disposition Clinical Impression: Dysarthria, Confusion Disposition: Admitted As Inpatient Condition: Fair Referrals: Lucy Martinez MD [Primary Care Provider] - Forms: ED Satisfaction Letter General Adult HPI - General Chief complaint: ED Neuro Symptoms/Deficit Stated complaint: neuro Time Seen by Provider: 06/22/18 09:52 Source: patient, family Mode of arrival: private vehicle Limitations: no limitations Nursing Notes Reviewed: Yes Vital Signs Reviewed: Yes - History of Present Illness HPI Narrative: Patient is a 68-year-old male with past medical history including diabetes, diabetes, prior prostate surgery for prostate cancer, presenting with family for chief complaint of strokelike symptoms. Patient went to bed around 2200 yesterday evening. Patient woke up around 845 and appeared to be confused according to his . states he typically has a morning routine and was not following that. He was standing in front of the freezer and had garbled speech. When he sat down, the patient appeared to be unable to say what he wanted to stay and he was appearing confused. He is checked his blood sugar in the morning but did not know to do so this morning. His obtain his blood sugar was 180. She face timed their daughter and she alsoand had garbled speech and was not talking appropriately and appeared confused. No facial droop, no weakness or paresthesias noted. Patient was immediately brought here. On arrival, patient's speech did improve. However he does appear confused. He is talking appropriately. Within the last year, the patient had prostate surgery. After the surgery, he was noted to have seizure-like activity and when he was sent to CT scan as an inpatient, he coaded. He was worked up at [place] and there is no etiology for the seizure-like activity. No history of prior strokes. Today, he had no convulsions or seizure-like activity. Pain Scale: 0 - Related Data Home Medications Medication Instructions Recorded Confirmed Aspirin Enteric Coated [Aspirin EC] 81 mg PO QPM 03/16/18 06/22/18 Atenolol [Tenormin] 50 mg PO BID 03/16/18 06/22/18 Cholecalciferol (D-3) [Vitamin D] 2,000 unit PO DAILY 03/16/18 06/22/18 Multivitamin [One Daily Essential] 1 tab PO DAILY 03/16/18 06/22/18 Pantoprazole Sodium 40 mg PO BID 03/16/18 06/22/18 amLODIPine [Norvasc] 5 mg PO DAILY 03/16/18 06/22/18 DiphenhydraMINE [Benadryl] 25 mg PO HS 06/22/18 06/22/18 Ferrous Sulfate 325 mg PO DAILY 06/22/18 06/22/18 Insulin DETEMIR [Levemir Flextouch] 5 unit SQ DAILY 06/22/18 06/22/18 Magnesium Oxide [Mag-Ox] 400 mg PO DAILY 06/22/18 06/22/18 Metformin HCl [Glucophage Xr] 500 mg PO BID 06/22/18 06/22/18 Rosuvastatin Calcium [Crestor] 40 mg PO DAILY 06/22/18 06/22/18 Allergies Allergy/AdvReac Type Severity Reaction Status Date / Time No Known Allergies Allergy Verified 06/22/18 10:54 All systems ED: reviewed and negative except as stated. Review of Systems: As Per HPI Constitutional: Denies: fever, chills Eyes: Denies: vision change ENT ED: Denies: dysphagia Cardiovascular: Denies: chest pain, palpitations Respiratory: Denies: cough, dyspnea Gastrointestinal: Denies: abdominal pain, nausea, vomiting Genitourinary: Denies: dysuria, hematuria Neurological: Reports: confusion. Denies: headache, weakness, numbness, paresthesias, abnormal gait Past Medical History - Past Medical History Attestation: Yes The following information was validated with the patient. Source: patient, obtained from family Medical history: Reports: diabetes, hypertension, other Psychiatric history: Reports: no psych history - Social History Smoking Status: Former smoker Smokeless Tobacco Status: No Alcohol use: Reports: none Drug use: Reports: none Physical Exam - General Limitations: no limitations General appearance: alert, in no apparent distress - Head Head exam: atraumatic, normocephalic - Eye Eye exam: Present: normal appearance, PERRL, EOMI - ENT ENT exam: normal exam, normal oropharynx, TM's normal bilaterally - Neck Neck exam: Present: normal inspection, full ROM - Chest Chest inspection: Present: normal inspection, symmetric chest wall rise - Respiratory Respiratory exam: Present: normal lung sounds bilaterally. Absent: respiratory distress, wheezes - Cardiovascular Cardiovascular exam: Present: regular rate, normal rhythm, normal heart sounds - Abdominal Exam Abdominal exam: Present: soft, Non-Tender - Extremities Exam Extremities exam: Present: normal inspection, full ROM, normal capillary refill. Absent: calf tenderness - Neurological Exam Neurological exam: Present: alert, CN II-XII intact, normal gait, other (NIH 0). Absent: motor sensory deficit - Expanded Neurological Exam Patient oriented to: Present: person, place. Absent: time Speech: Present: fluid speech Cerebellar function: finger to nose: Normal, heel to munguia: Normal Cerebellar function: normal gait Motor strength - LUE: 5/5 Motor strength - RUE: 5/5 Motor strength - LLE: 5/5 Motor strength - RLE: 5/5 Upper motor neuron exam: lalita neglect: Absent bilaterally, pronator drift: Absent bilaterally Sensory exam upper extremity: light touch: Normal Sensory exam lower extremity: light touch: Normal Coma Scale Eye Opening: Spontaneous Coma Scale Motor Response: Obeys Commands Coma Scale Verbal Response: Oriented Coma Scale Total: 15 - Psychiatric Psychiatric exam: Present: normal affect, normal mood - Skin Skin exam: Present: warm, dry, intact, normal color Course Vital Signs Temperature 97.9 F 06/22/18 10:00 Pulse Rate 95 06/22/18 10:00 Respiratory Rate 16 06/22/18 10:00 Blood Pressure 179/96 06/22/18 10:00 O2 Sat by Pulse Oximetry 94 06/22/18 10:00 Temperature 97.9 F 06/22/18 10:00 Pulse Rate 90 06/22/18 12:32 Respiratory Rate 15 06/22/18 12:32 Blood Pressure 128/82 06/22/18 12:32 O2 Sat by Pulse Oximetry 100 06/22/18 12:32 Oxygen Delivery Oxygen Delivery Room Air Medical Decision Making - [facility] Narrative Medical decision making narrative: On arrival, patient has appropriate speech, no longer garbled. He is answering questions appropriately however he is alert to himself, place, but not time. He states it is January and he does not know who the president is. Initially, since symptoms were improving and he went to bed at 10 PM yesterday and woke up with confusion and garbled speech, he is not a candidate for TPA. NIH 0. CT head, CT angiogram of head and neck were ordered as well as basic lab work and evaluation for infection source including urinalysis, chest x-ray. Accu-Chek was 190. After our initial evaluation, we were called back to the room at approximately 10:05 as patient was no longer talking. He does have of acute dysarthria now. He is able to shake his head yes and no, follow commands, stick out his tongue. No facial droop or other abnormalities noted. But when asking a question, he will not open his mouth to talk. She stroke alert was then called at 10:06. CT head without contrast shows no acute intracranial abnormality. Discussed with [facility] neurology, Dr. Irvin at 11:00. Dysarthria is now resolved. He is however still confused and does not know the time. He is not a candidate for TPA. Stroke alert was canceled. Pending is CTA results. If negative, patient will be admitted for EEG monitoring is another concern is possible absence Seizure. If positive will transfer up to [facility]. Once CT results returned, we will discuss with [facility] neurology again. CTA negative for intracranial flow limiting stenosis. No intracranial intervention at this time. WIll consult our Neurologist for admission for EEG and MRI to delineate stroke versus seizure. Discussed with [facility] Neurology at 12:20. Discussed with Neurology, Dr. Young at 12:30 . He will be consulted on the patient. Patient is on aspirin. He would like Plavix ordered 75mg now and he will be admitted for MRI and EEG. Hospitalist will be consulted for admission.' Discussed with Hospitlaist Dr. Barnes, who accepts admission. Patient remains medically stable. - Medical Records Medical records reviewed: Yes I reviewed the patient's medical records. - Lab Data Lab results reviewed: Yes I reviewed the patient's lab results. Result diagrams: 06/22/18 10:10 06/22/18 10:10 Lab Results 06/22/18 06/22/18 06/22/18 Range/Units 09:59 10:10 10:10 WBC 7.2 (4.3-11.1) K/mcL RBC 4.50 (4.19-5.50) M/mcL Hgb 11.0 L (12.9-16.9) g/dL Hct 35.8 L (37.5-50.1) % MCV 79.6 L (83.0-100.0) fL MCH 24.4 L (28.0-33.3) pg MCHC 30.7 L (31.6-35.5) g/dL RDW 14.3 (11.5-14.5) % Plt Count 240 (140-400) K/mcL MPV 8.8 L (9.4-12.4) fL PT (9.4-12.1) Seconds INR APTT (26.0-36.0) Seconds Sodium (136-145) mEq/L Potassium (3.5-5.1) mEq/L Chloride (98-107) mEq/L Carbon Dioxide (23-29) mEq/L BUN (8-23) mg/dL Creatinine (0.70-1.30) mg/dL Est GFR ( Amer) (> 60) Est GFR (Non-Af Amer) (> 60) BUN/Creatinine Ratio (6-26) Glucose (70-105) mg/dL POC Glucose 190 H (70-99) mg/dL Calculated Osmolality (280-300) Calcium (8.6-10.3) mg/dL Troponin I (< 0.04) ng/mL Urine Color Yellow (Yellow) Urine Clarity Slightly Hazy (Clear) Urine pH 7.0 (5.0-8.0) pH Units Ur Specific [place] > 1.030 H (1.010-1.025) Urine Protein 30 H (Neg-Trace) mg/dL Urine Glucose (UA) Normal (Normal) mg/dL Urine Ketones Negative (Negative) mg/dL Urine Blood Moderate H (Negative) Urine Nitrite Negative (Negative) Urine Bilirubin Negative (Negative) Urine Urobilinogen Normal (Normal) mg/dL Ur Leukocyte Esterase Large H (Negative) Urine Microscopic RBC 15-30 H (0-3) per hpf Urine Microscopic WBC TNTC H (0-3) per hpf Ur Squamous Epith Cells None Seen (None-Few) per lpf Urine Bacteria None Seen (None-Few) per hpf Hyaline Casts None Seen (None-Few) per lpf Ur Culture Indicated? YES A (NO) 06/22/18 06/22/18 Range/Units 10:10 10:10 WBC (4.3-11.1) K/mcL RBC (4.19-5.50) M/mcL Hgb (12.9-16.9) g/dL Hct (37.5-50.1) % MCV (83.0-100.0) fL MCH (28.0-33.3) pg MCHC (31.6-35.5) g/dL RDW (11.5-14.5) % Plt Count (140-400) K/mcL MPV (9.4-12.4) fL PT 11.4 (9.4-12.1) Seconds INR 1.0 APTT 30.1 (26.0-36.0) Seconds Sodium 137 (136-145) mEq/L Potassium 3.8 (3.5-5.1) mEq/L Chloride 103 (98-107) mEq/L Carbon Dioxide 25 (23-29) mEq/L BUN 10 (8-23) mg/dL Creatinine 1.09 (0.70-1.30) mg/dL Est GFR ( Amer) > 60 (> 60) Est GFR (Non-Af Amer) > 60 (> 60) BUN/Creatinine Ratio 9 (6-26) Glucose 220 H (70-105) mg/dL POC Glucose (70-99) mg/dL Calculated Osmolality 290 (280-300) Calcium 9.6 (8.6-10.3) mg/dL Troponin I < 0.03 (< 0.04) ng/mL Urine Color (Yellow) Urine Clarity (Clear) Urine pH (5.0-8.0) pH Units Ur Specific [place] (1.010-1.025) Urine Protein (Neg-Trace) mg/dL Urine Glucose (UA) (Normal) mg/dL Urine Ketones (Negative) mg/dL Urine Blood (Negative) Urine Nitrite (Negative) Urine Bilirubin (Negative) Urine Urobilinogen (Normal) mg/dL Ur Leukocyte Esterase (Negative) Urine Microscopic RBC (0-3) per hpf Urine Microscopic WBC (0-3) per hpf Ur Squamous Epith Cells (None-Few) per lpf Urine Bacteria (None-Few) per hpf Hyaline Casts (None-Few) per lpf Ur Culture Indicated? (NO) - Radiology Data Radiology results reviewed: Yes I reviewed the patient's radiology results. Chest X-Ray 06/22/18 10:01 IMPRESSION: No acute cardiopulmonary disease. D/ / Isabel Delgado MD / Isabel Delgado MD Interpreting Provider: Isabel Delgado MD Head CT 06/22/18 10:09 IMPRESSION: No acute intracranial abnormality. D/ : / 06/22/2018 11:07:00 [place] Jean Baptiste MD / [email or web address] Interpreting Provider: [place] Jean Baptiste MD - EKG Data EKG #1 EKG attestation: Yes I reviewed and interpreted this EKG. EKG results narrative: EKG from today at 10:13 reviewed and shows sinus rhythm with rate 89, IL interval 206, QRSd 81, QTc 427, no acute ST elevation or depression. Overall impression is no acute ischemic changes. Compared to prior EKG on 03/16/2018 which is unchanged. IL interval is 190 at that time. Attestation Statement - Attestation Attestation: I, Jose Loera DO, examined this patient [id number] and my medical decision-making was reviewed with Dr. Sylvia Zhang , Resident Physician. I agree with the documented findings, disposition and treatment plan as described except to the extent set forth below. Please see my progress notes for details.
[2018-06-22 10:48] LABS: BUN/Creatinine Ratio 9 (6-26); Blood Urea Nitrogen 10 mg/dL (8-23); Calcium 9.6 mg/dL (8.6-10.3); Carbon Dioxide 25 mEq/L (23-29); Chloride 103 mEq/L (98-107); Glucose 220 mg/dL (70-105); Osmolality,Calculated 290 (280-300); Potassium 3.8 mEq/L (3.5-5.1); Sodium 137 mEq/L (136-145); Troponin I < 0.03 ng/mL (< 0.04); eGFR For Non-African Americans > 60 (> 60)
[2018-06-22 11:06] LABS: Prothrombin Time 11.4 Seconds (9.4-12.1)
[2018-06-22 11:09] LABS: Activated Partial Thrombo Time 30.1 Seconds (26.0-36.0)
[2018-06-22 12:19] LABS: Bilirubin,Urine Negative (Negative); Blood,Urine Moderate (Negative); Color,Urine Yellow (Yellow); Glucose,Urine (UA) Normal (Normal); Ketones,Urine Negative (Negative); Leukocyte Esterase,Urine Large (Negative); Nitrite,Urine Negative (Negative); Protein,Urine 30 mg/dL (Neg-Trace); Specific Gravity,Urine > 1.030 (1.010-1.025); Urobilinogen,Urine Normal (Normal)
[2018-06-22 12:22] LABS: Bacteria,Urine None Seen per hpf (None-Few); Hyaline Casts,Urine None Seen per lpf (None-Few); RBC,Urine 15-30 per hpf (0-3); Squamous Epithelial Cell,Urine None Seen per lpf (None-Few); WBC,Urine TNTC per hpf (0-3)
[2018-06-22 12:24] LABS: Clarity,Urine Slightly Hazy (Clear)
--- NOTE | 2018-06-22 13:07 | Emergency Department Note ---
Disposition Clinical Impression: Dysarthria, Confusion Disposition: Admitted As Inpatient Condition: Fair Referrals: Lucy Martinez MD [Primary Care Provider] - Forms: ED Satisfaction Letter Time of Disposition: 13:13 General Adult HPI - General Chief complaint: ED Neuro Symptoms/Deficit Stated complaint: neuro Time Seen by Provider: 06/22/18 09:52 Source: patient, family Mode of arrival: private vehicle Limitations: no limitations - History of Present Illness Pain Scale: 0 - Related Data Home Medications Medication Instructions Recorded Confirmed Aspirin Enteric Coated [Aspirin EC] 81 mg PO QPM 03/16/18 06/22/18 Atenolol [Tenormin] 50 mg PO BID 03/16/18 06/22/18 Cholecalciferol (D-3) [Vitamin D] 2,000 unit PO DAILY 03/16/18 06/22/18 Multivitamin [One Daily Essential] 1 tab PO DAILY 03/16/18 06/22/18 Pantoprazole Sodium 40 mg PO BID 03/16/18 06/22/18 amLODIPine [Norvasc] 5 mg PO DAILY 03/16/18 06/22/18 DiphenhydraMINE [Benadryl] 25 mg PO HS 06/22/18 06/22/18 Ferrous Sulfate 325 mg PO DAILY 06/22/18 06/22/18 Insulin DETEMIR [Levemir Flextouch] 5 unit SQ DAILY 06/22/18 06/22/18 Magnesium Oxide [Mag-Ox] 400 mg PO DAILY 06/22/18 06/22/18 Metformin HCl [Glucophage Xr] 500 mg PO BID 06/22/18 06/22/18 Rosuvastatin Calcium [Crestor] 40 mg PO DAILY 06/22/18 06/22/18 Allergies Allergy/AdvReac Type Severity Reaction Status Date / Time No Known Allergies Allergy Verified 06/22/18 10:54 Constitutional: Denies: fever, chills Eyes: Denies: vision change ENT ED: Denies: dysphagia Cardiovascular: Denies: chest pain, palpitations Respiratory: Denies: cough, dyspnea Gastrointestinal: Denies: abdominal pain, nausea, vomiting Genitourinary: Denies: dysuria, hematuria Neurological: Reports: confusion. Denies: headache, weakness, numbness, paresthesias, abnormal gait Past Medical History - Past Medical History Medical history: Reports: diabetes, hypertension, other Psychiatric history: Reports: no psych history - Social History Smoking Status: Former smoker Smokeless Tobacco Status: No Alcohol use: Reports: none Drug use: Reports: none Physical Exam - General Limitations: no limitations General appearance: alert, in no apparent distress Course Vital Signs Temperature 97.9 F 06/22/18 10:00 Pulse Rate 95 06/22/18 10:00 Respiratory Rate 16 06/22/18 10:00 Blood Pressure 179/96 06/22/18 10:00 O2 Sat by Pulse Oximetry 94 06/22/18 10:00 Temperature 97.9 F 06/22/18 10:00 Pulse Rate 90 06/22/18 12:32 Respiratory Rate 15 06/22/18 12:32 Blood Pressure 128/82 06/22/18 12:32 O2 Sat by Pulse Oximetry 100 06/22/18 12:32 Oxygen Delivery Oxygen Delivery Room Air Medical Decision Making - Lab Data Result diagrams: 06/22/18 10:10 06/22/18 10:10 Lab Results 06/22/18 06/22/18 06/22/18 Range/Units 09:59 10:10 10:10 WBC 7.2 (4.3-11.1) K/mcL RBC 4.50 (4.19-5.50) M/mcL Hgb 11.0 L (12.9-16.9) g/dL Hct 35.8 L (37.5-50.1) % MCV 79.6 L (83.0-100.0) fL MCH 24.4 L (28.0-33.3) pg MCHC 30.7 L (31.6-35.5) g/dL RDW 14.3 (11.5-14.5) % Plt Count 240 (140-400) K/mcL MPV 8.8 L (9.4-12.4) fL PT (9.4-12.1) Seconds INR APTT (26.0-36.0) Seconds Sodium (136-145) mEq/L Potassium (3.5-5.1) mEq/L Chloride (98-107) mEq/L Carbon Dioxide (23-29) mEq/L BUN (8-23) mg/dL Creatinine (0.70-1.30) mg/dL Est GFR ( Amer) (> 60) Est GFR (Non-Af Amer) (> 60) BUN/Creatinine Ratio (6-26) Glucose (70-105) mg/dL POC Glucose 190 H (70-99) mg/dL Calculated Osmolality (280-300) Calcium (8.6-10.3) mg/dL Troponin I (< 0.04) ng/mL Urine Color Yellow (Yellow) Urine Clarity Slightly Hazy (Clear) Urine pH 7.0 (5.0-8.0) pH Units Ur Specific [place] > 1.030 H (1.010-1.025) Urine Protein 30 H (Neg-Trace) mg/dL Urine Glucose (UA) Normal (Normal) mg/dL Urine Ketones Negative (Negative) mg/dL Urine Blood Moderate H (Negative) Urine Nitrite Negative (Negative) Urine Bilirubin Negative (Negative) Urine Urobilinogen Normal (Normal) mg/dL Ur Leukocyte Esterase Large H (Negative) Urine Microscopic RBC 15-30 H (0-3) per hpf Urine Microscopic WBC TNTC H (0-3) per hpf Ur Squamous Epith Cells None Seen (None-Few) per lpf Urine Bacteria None Seen (None-Few) per hpf Hyaline Casts None Seen (None-Few) per lpf Ur Culture Indicated? YES A (NO) 06/22/18 06/22/18 Range/Units 10:10 10:10 WBC (4.3-11.1) K/mcL RBC (4.19-5.50) M/mcL Hgb (12.9-16.9) g/dL Hct (37.5-50.1) % MCV (83.0-100.0) fL MCH (28.0-33.3) pg MCHC (31.6-35.5) g/dL RDW (11.5-14.5) % Plt Count (140-400) K/mcL MPV (9.4-12.4) fL PT 11.4 (9.4-12.1) Seconds INR 1.0 APTT 30.1 (26.0-36.0) Seconds Sodium 137 (136-145) mEq/L Potassium 3.8 (3.5-5.1) mEq/L Chloride 103 (98-107) mEq/L Carbon Dioxide 25 (23-29) mEq/L BUN 10 (8-23) mg/dL Creatinine 1.09 (0.70-1.30) mg/dL Est GFR ( Amer) > 60 (> 60) Est GFR (Non-Af Amer) > 60 (> 60) BUN/Creatinine Ratio 9 (6-26) Glucose 220 H (70-105) mg/dL POC Glucose (70-99) mg/dL Calculated Osmolality 290 (280-300) Calcium 9.6 (8.6-10.3) mg/dL Troponin I < 0.03 (< 0.04) ng/mL Urine Color (Yellow) Urine Clarity (Clear) Urine pH (5.0-8.0) pH Units Ur Specific [place] (1.010-1.025) Urine Protein (Neg-Trace) mg/dL Urine Glucose (UA) (Normal) mg/dL Urine Ketones (Negative) mg/dL Urine Blood (Negative) Urine Nitrite (Negative) Urine Bilirubin (Negative) Urine Urobilinogen (Normal) mg/dL Ur Leukocyte Esterase (Negative) Urine Microscopic RBC (0-3) per hpf Urine Microscopic WBC (0-3) per hpf Ur Squamous Epith Cells (None-Few) per lpf Urine Bacteria (None-Few) per hpf Hyaline Casts (None-Few) per lpf Ur Culture Indicated? (NO) Critical Care Time Critical Care Time: Yes Total Critical Care Time: 45 Attestation: Critical care performed: Time is exclusive of separately billable procedures. Time includes: direct patient care, patient reassessment, coordination of patient care, interpretation of data (laboratory data, radiology data, and respiratory data), review of patient's medical records, medical consultation and documentation of patient care. Procedures included in critical care time: Procedures excluded from critical care time: Attestation Statement - Attestation Attestation: I, Jose Loera DO, examined this patient [id number] and my medical decision-making was reviewed with Dr. Sylvia Zhang , Resident Physician. I agree with the documented findings, disposition and treatment plan as described except to the extent set forth below. Please see my progress notes for details. 68-year-old male presents to the emergency room with concern for strokelike symptoms. Patient woke up this morning approximately 15 minutes prior to 9:00. He woke up and walk to the kitchen as he normally does. The says is very regimented. When he went to the kitchen he typically sits down and checks his glucose. He inadvertently walked to the refrigerator and opened up the freezer and was mumbling worse himself. asked him what he was doing is unable to articulate words and was confused. He did not show any acute signs of facial asymmetry or inability to walk. Is concerned because he had a symptoms similar to this less than 3 months ago. Up in a cardiac arrest up at [facility]. She brought him in immediately to the emergency room. During transport by personal vehicle the patient's symptoms started to resolve. On arrival here the patient was speaking in full sentences and answering questions but he is confused to time and place. He did just complete an antibiotic regiment for urinary tract infection but otherwise has no other medical issues at a been treated or diagnosed recently. Patient had a surgery on his abdomen for prostate cancer. He lost a great deal but at that time. During the medical resuscitation the patient was taken over the CAT scan and then coated subsequently. The etiology to the cardiac arrest is unknown. My concern is that his possible ventricular fibrillation. Is also concerned this is similar to the presentation that time and cause another seizure in the cardiac arrest. Patient had resolution of the symptoms of stroke alert was not immediately called on arrival here to the emergency room. He also wake up stroke that his last known well was at approximately 10 PM the night before. Vital signs otherwise stable. Patient is showing no acute signs of neurologic deficit. Cranial nerves II through XII are grossly intact. His cerebellar function is normal. Accu-Chek and labs be collected. EKG CBC chemistry along with CT imaging of the head CT angiography of the head neck and definitive management will be established here in the emergency room and inpatient setting. Patient will require admission. Otherwise he has no other acute findings on initial evaluation. Approximately 10 minutes after the patient arrived and I completed my evaluation is call back to the room because the patient does have significant dysarthria. He was unable to phonate words at that time. Because of the waxing and waning symptoms it was determined that the patient will be evaluated with a stroke alert this time. Immediate CT scan and imaging modalities will be resulted. Family is comfortable this plan this time. No other acute concerns noted. See detailed documentation the physical exam, medical intervention, med ical decision-making and disposition in the resident physician's note. 45 minutes of critical care applied the patient's treatment course at this time. [address] [facility] neurologist [address]. Horn reviewed the patient's clinical presentation and case. She agreed is not TPA candidate and by the time he came back from the CAT scan had complete resolution of his symptoms. Does not appear to have any focal signs of infectious etiology at this time. CT angiography was ordered and resulted showing no vascularity significant lesions. Patient was discussed with the neurologist. Our facility and they recommended admission with aspirin and Plavix being started. Patient will be monitored closely for symptomatic resolution and admission process. The hospitalist Dr. Barnes reviewed the case and no other questions at this time. Patient is stable with no progression or change in the symptoms here in the emergency department. No other medical intervention is required at this time. Patient will be admitted for continuation care management. We will monitor in emergency room to the a dmission process is completed hematuria is mostly secondary to the prostate related issues. Does not have gross blood on urinalysis. No history of renal stones or colic. Patient is otherwise stable. Patient will be admitted for continuation of care. Hospitalist was contacted. Disposition will be admission.
[2018-06-22] MEDS ORDERED: Naloxone 0.4 MG/ML INJ IVP PRN (16:31)
[2018-06-22] MEDS: Aspirin Enteric Coated 81 MG Tablet PO SCH (19:41)
[2018-06-22] MEDS ORDERED: D5% in Water 1,000 ML IVC PRN (21:17)
[2018-06-22] MEDS ORDERED: *HR* Dextrose 50 % in Water (Syg) 50 ML SYRINGE IVP PRN (21:17)
[2018-06-22] MEDS ORDERED: Dextrose Gel 15 GM/37.5 ML TUBE PO PRN ×2 (21:17)
--- NOTE | 2018-06-22 21:38 | Internal Med History&Physical ---
Date of Encounter: 06/23/18 Time of Encounter: 11:00 Internal Medicine - H&P: HPI Chief complaint: Dysarthria Admitted From: Home History of present illness: Patient is a 68-year-old male with past medical history significant for hypertension and diabetes who presented to the ER on 06/22/18 due to dysarthria. Family who is at patients bedside reports that patient developed dysarthria with difficulty expressing words in addition to garbled speech. Family was concerned about patient in the ER for further workup and evaluation. In the ER, CT of the head was negative for any acute findings. Patient will be admitted to the medical surgical floor for CVA/TIA workup. Past Med Surg Social Fam HX - Past Medical History Medical history: diabetes, hyperlipidemia, hypertension, other Additional medical history: Coded in May 2018 Psychiatric history: no psych history - Past Surgical History Additional surgical history: prostate surgery - Social History Smoking Status: Former smoker Smokeless Tobacco Status: No Alcohol use: none Drug use: none - Additional Family History Additional family history: Diabetes Internal Medicine - H&P: Meds Aspirin Enteric Coated [Aspirin EC] 81 mg PO QPM 03/16/18 [History] Atenolol [Tenormin] 50 mg PO BID 03/16/18 [History] Cholecalciferol (D-3) [Vitamin D] 2,000 unit PO DAILY 03/16/18 [History] Multivitamin [One Daily Essential] 1 tab PO DAILY 03/16/18 [History] Pantoprazole Sodium 40 mg PO BID 03/16/18 [History] amLODIPine [Norvasc] 5 mg PO DAILY 03/16/18 [History] DiphenhydraMINE [Benadryl] 25 mg PO HS 06/22/18 [History] Ferrous Sulfate 325 mg PO DAILY 06/22/18 [History] Insulin DETEMIR [Levemir Flextouch] 5 unit SQ DAILY 06/22/18 [History] Magnesium Oxide [Mag-Ox] 400 mg PO DAILY 06/22/18 [History] Metformin HCl [Glucophage Xr] 500 mg PO BID 06/22/18 [History] Rosuvastatin Calcium [Crestor] 40 mg PO DAILY 06/22/18 [History] Allergy/AdvReac Type Severity Reaction Status Date / Time No Known Allergies Allergy Verified 06/22/18 10:54 All Systems PM: A 10-system review of systems was performed and is negative for pertinent findings except as documented above in the HPI. - Constitutional Vitals: Temp Pulse Resp BP Pulse Ox 99.6 F 75 18 116/71 96 06/22/18 20:46 06/22/18 20:46 06/22/18 20:46 06/22/18 20:46 06/22/18 20:46 General appearance: Present: A&O X 3, no acute distress Exam: As above - Eye Eye exam: Present: EOMI. Absent: nystagmus - ENT ENT exam: Present: mucous membranes moist - Respiratory Respiratory exam: Present: CTAB. Absent: accessory muscle use, rales, rhonchi, wheezes - Cardiovascular Cardiovascular exam: Present: RRR, +S1, +S2. Absent: diastolic murmur, gallop, rubs, systolic murmur - GI/Abdominal GI/Abdominal exam: Present: normal bowel sounds, soft, no peritoneal signs. Absent: distended, tenderness - Expanded Neurological Exam Neurological exam expanded: Absent: expressive aphasia Speech: Absent: garbled, slurred Cranial Nerves: nystagmus PM: Normal, tongue deviation PM: Normal Neuro motor strength exam: LUE: 5, RUE: 5, LLE: 5, RLE: 5 - Psychiatric Psychiatric exam: Present: normal mood - Skin Skin exam: Present: normal color Internal Med - H&P Results - Labs CBC & Chem 7: 06/23/18 03:37 06/23/18 03:37 Labs: Short CBC 06/22/18 Range/Units 10:10 WBC 7.2 (4.3-11.1) K/mcL Hgb 11.0 L (12.9-16.9) g/dL Hct 35.8 L (37.5-50.1) % Plt Count 240 (140-400) K/mcL BMP 06/22/18 10:10 Sodium 137 Potassium 3.8 Chloride 103 Carbon Dioxide 25 BUN 10 Creatinine 1.09 Glucose 220 H Calcium 9.6 Cardiac Enzymes 06/22/18 Range/Units 10:10 Troponin I < 0.03 (< 0.04) ng/mL Urine 06/22/18 Range/Units 10:10 Urine Color Yellow (Yellow) Urine Clarity Slightly Hazy (Clear) Urine pH 7.0 (5.0-8.0) pH Units Ur Specific [place] > 1.030 H (1.010-1.025) Urine Protein 30 H (Neg-Trace) mg/dL Urine Glucose (UA) Normal (Normal) mg/dL - Impressions ITS Impressions Chest X-Ray 06/22/18 10:01 IMPRESSION: No acute cardiopulmonary disease. D/ / Isabel Delgado MD / Isabel Delgado MD Interpreting Provider: Isabel Delgado MD Head CTA 06/22/18 10:01 IMPRESSION: Mild, less than 50%, stenosis of the internal carotid arteries by NASCET criteria. No intracranial flow-limiting stenosis. D/ / 06/22/2018 11:53:06 Africa Jean Baptiste MD / [facility] Interpreting Provider: [place] Jean Baptiste MD Neck CTA 06/22/18 10:02 IMPRESSION: Mild, less than 50%, stenosis of the internal carotid arteries by NASCET criteria. No intracranial flow-limiting stenosis. D/ / 06/22/2018 11:53:06 [place] Jean Baptiste MD / [facility] Interpreting Provider: [place] Jean Baptiste MD Head CT 06/22/18 10:09 IMPRESSION: No acute intracranial abnormality. D/ / 06/22/2018 11:07:00 Africa Jean Baptiste MD / [facility] Interpreting Provider: [place] Jean Baptiste MD Brain MRI 06/22/18 16:33 IMPRESSION: 1. No acute intracranial abnormality. 2. Mild chronic white matter microvascular ischemic changes. D/ / Donaldo Weber / Donaldo Weber Interpreting Provider: Donaldo Weber - Assessment and plan (1) Dysarthria Current Visit: Yes Status: Acute Assessment and plan: Patient with dysarthria, speech and inability to express words; concerns for CVA/TIA MRI and EEG pending. Neurology consulted and following (2) Hypertension Current Visit: No Status: Acute Assessment and plan: Will temporarily hold patient's home medications Qualifiers: Hypertension type: essential hypertension Qualified Code(s): I10 - Essential (primary) hypertension (3) Uncontrolled type 2 diabetes mellitus with hyperglycemia Current Visit: No Status: Acute Assessment and plan: Coverage with sliding scale insulin - Time Spent With Patient Total time spent is greater than 50% in coordination of care (as documented) at patient's floor/unit and/or counseling patient:
[2018-06-22 21:43] LABS: Estimated Average Glucose 137 mg/dl; Hemoglobin A1C 6.4 %
[2018-06-22] MEDS: Insulin LISPRO 300 UNITS/3 ML VIAL SQ SCH (22:21)
[2018-06-23 03:56] LABS: Basophils % 0.2 %; Eosinophils % 0.2 %; Hematocrit 33.5 % (37.5-50.1); Hemoglobin 10.4 g/dL (12.9-16.9); Immature Granulocytes % 0.2 % (0-4); Lymphocytes # 2.9 K/mcL (0.6-4.6); Lymphocytes % 33.3 %; Mean Corpuscular Hemoglobin 24.4 pg (28.0-33.3); Mean Corpuscular Volume 78.6 fL (83.0-100.0); Mean Platelet Volume 8.9 fL (9.4-12.4); Monocytes # 0.5 K/mcL (0.0-1.3); Monocytes % 5.4 %; Neutrophils # 5.3 K/mcL (1.6-8.9); Platelet Count 227 K/mcL (140-400); Red Blood Count 4.26 M/mcL (4.19-5.50); Red Cell Distribution Width 14.3 % (11.5-14.5); Segmented Neutrophils % 60.7 %
[2018-06-23 04:15] LABS: BUN/Creatinine Ratio 14 (6-26); Blood Urea Nitrogen 13 mg/dL (8-23); Calcium 9.3 mg/dL (8.6-10.3); Carbon Dioxide 24 mEq/L (23-29); Chloride 103 mEq/L (98-107); Glucose 174 mg/dL (70-105); Osmolality,Calculated 284 (280-300); Potassium 3.6 mEq/L (3.5-5.1); Sodium 135 mEq/L (136-145); eGFR For Non-African Americans > 60 (> 60)
[2018-06-23] MEDS: Insulin LISPRO 300 UNITS/3 ML VIAL SQ SCH ×4 (07:55→21:49)
[2018-06-23] MEDS: Magnesium Oxide 400 MG TABLET PO SCH (08:00)
--- NOTE | 2018-06-23 08:54 | Neurology - Consult Note ---
Date of Encounter: 06/23/18 Time of Encounter: 07:20 Assessment and Plan (1) Change in mental status Current Visit: Yes Status: Acute This patient who was admitted with the difficulty with his speech as well as mental status changes now seems to be back to his baseline MRI of the brain is negative possibility of a TIA versus nonconvulsive seizure He also has an history of heavy alcohol use in the past suspect he did have significant memory damage from it and likely recent encephalopathic changes could be due to other metabolic and infectious dysfunction Considering the symptoms and possibility of a TIA suggest stroke workup including echocardiogram and carotid duplex We will get an EEG to make sure no interictal abnormalities Hold off for any anti-seizure medication until any abnormality noted on MRI or EEG Check for other metabolic and infectious etiologies in particularly for vitamin B12 folate TSH as well as thiamine deficiency Continue on antiplatelet therapy along with statin other treatment is as per primary team Qualifiers: Altered mental status type: transient alteration of awareness Qualified Code(s): R40.4 - Transient alteration of awareness (2) History of ETOH abuse Current Visit: Yes Status: Acute (3) Dysarthria Current Visit: Yes Status: Acute History of Present Illness HPI: Mr. Arauz is a 68 year old male with past medical history including diabetes, diabetes, prostate cancer, admitted with confusion as well as difficulty with his speech. According to the he woke up in the morning around 9:00 and. To be confused unable to do think that usually he does with his more normal 14 at the same time he noticed that he was having significant problem in saying that were slowly he did have some confusion but able to recognize his His obtain his blood sugar was 180. On arrival, patient's speech did improve. [facility] telemetry stroke service is consulted not TPA candidate due to the improvement of the symptoms at the same time does not look like a typical stroke as he did have some confusion. As per family last year, the patient had prostate surgery. After the surgery, he was noted to have seizure-like activity and when he was sent to CT scan as an inpatient, He was worked up at [facility] and there is no etiology for the seizure-like activity. No history of prior strokes. Patient also has a long history of alcoholic abuse now he drinks only 1-2 beers a day he had been in the rehabilitation about 6 months ago for acute detoxification. Past Med Surg Social Fam HX - Past Medical History Medical history: diabetes, hyperlipidemia, hypertension, other Additional medical history: Coded in May 2018 Psychiatric history: no psych history - Past Surgical History Additional surgical history: prostate surgery - Social History Smoking Status: Former smoker Smokeless Tobacco Status: No Alcohol use: none Drug use: none Medications and Allergies Aspirin Enteric Coated [Aspirin EC] 81 mg PO QPM 03/16/18 [History] Atenolol [Tenormin] 50 mg PO BID 03/16/18 [History] Cholecalciferol (D-3) [Vitamin D] 2,000 unit PO DAILY 03/16/18 [History] Multivitamin [One Daily Essential] 1 tab PO DAILY 03/16/18 [History] Pantoprazole Sodium 40 mg PO BID 03/16/18 [History] amLODIPine [Norvasc] 5 mg PO DAILY 03/16/18 [History] DiphenhydraMINE [Benadryl] 25 mg PO HS 06/22/18 [History] Ferrous Sulfate 325 mg PO DAILY 06/22/18 [History] Insulin DETEMIR [Levemir Flextouch] 5 unit SQ DAILY 06/22/18 [History] Magnesium Oxide [Mag-Ox] 400 mg PO DAILY 06/22/18 [History] Metformin HCl [Glucophage Xr] 500 mg PO BID 06/22/18 [History] Rosuvastatin Calcium [Crestor] 40 mg PO DAILY 06/22/18 [History] Allergy/AdvReac Type Severity Reaction Status Date / Time No Known Allergies Allergy Verified 06/22/18 10:54 All Systems: The remainder of the systems were reviewed and are negative Physical Examination - Vital Signs Vital Signs: Initial Vital Signs Temp Pulse Resp BP Pulse Ox 97.9 F 95 16 179/96 94 06/22/18 10:00 06/22/18 10:00 06/22/18 10:00 06/22/18 10:00 06/22/18 10:00 - Exam Exam: GENERAL: Comfortable in no acute distress HEENT: Normal LUNGS: CTA HEART: RRR, S1 S2 Audible, no murmur EXTREMITIES: No Pedal edema. DETAILED NEUROLOGICAL EXAMINATION: MENTAL STATUS: Oriented to person, place, Memory: knows the President, Aware of recent events Recent Memory decrease t, Attention span is decrease. Cranial Nerve Examination: CN - II: Visual Acuity, Field of Vision Normal, Fundus examination: No disk edema, Pupils- size shape reaction to light and accommodation: All normal. CN III, IV, : External ocular movements were intact, Pupils were reactive, Nodrooping of the eyelids CN V: Sensation over the face to light touch and pinprick all normal. Corneal reflexes not tested, jaw jerk normal. CN VII: No facial asymmetry, no flattening of nasolabial folds, no difficulty in closing the eyes, no loss of forehead wrinkles, no difficulty in eye-closure, frowning raising eyebrows. CNVIII: No significant hearing loss CN IX, X: Uvula centralized not deviated, Gag reflex: Not tested CN X1: Sternocleidomastoid, trapezius, normal or evidence of any weakness. CN X11: No Dysarthria, no wasting or fibrilation f tongue muscles, no deviation, tongue muscle strength normal. Motor examination: No hypertrophy, tone was normal, power grade 0-5 Upper limbs Proximal- No difficulty in lifting the arms above the head. Distal- No weakness in distal muscles On formal testing 5/5 all over Lower limbs On formal testing 5/5 all over Coordination: [id number] normal. Target pursuit normal finger tapping normal, Rapid alternating moment of wrist normal Sensory system: Superficial sensations- Touch normal. Pain- Pinprick, Temperature inconsistent Deep sensation normal, Joint position sense normal. Cortical sensation, Tactile discrimination, localization and extinction all normal. Deep tendon reflexes. Symmetrical bilateral, No evidence of Babinski. No sign of meningeal irritation Gait Examination: Deferred - Constitutional General appearance: comfortable Results - Laboratory Findings CBC and BMP: 06/23/18 03:37 06/23/18 03:37 Abnormal lab findings: Abnormal lab results Hgb 10.4 g/dL (12.9-16.9) L 06/23/18 03:37 Hct 33.5 % (37.5-50.1) L 06/23/18 03:37 MCV 78.6 fL (83.0-100.0) L 06/23/18 03:37 MCH 24.4 pg (28.0-33.3) L 06/23/18 03:37 MCHC 31.0 g/dL (31.6-35.5) L 06/23/18 03:37 MPV 8.9 fL (9.4-12.4) L 06/23/18 03:37 Sodium 135 mEq/L (136-145) L 06/23/18 03:37 Glucose 174 mg/dL (70-105) H 06/23/18 03:37 POC Glucose 148 mg/dL (70-99) H 06/22/18 17:50 Hemoglobin A1c 6.4 % (-5.6) H 06/22/18 10:19 Ur Specific [place] > 1.030 (1.010-1.025) H 06/22/18 10:10 Urine Protein 30 mg/dL (Neg-Trace) H 06/22/18 10:10 Urine Blood Moderate (Negative) H 06/22/18 10:10 Ur Leukocyte Esterase Large (Negative) H 06/22/18 10:10 Urine Microscopic RBC 15-30 per hpf (0-3) H 06/22/18 10:10 Urine Microscopic WBC TNTC per hpf (0-3) H 06/22/18 10:10 Ur Culture Indicated? YES (NO) A 06/22/18 10:10 Consult Discharge Plan - Plan Referrals: Lucy Martinez MD [Primary Care Provider] -
[2018-06-23] MEDS ORDERED: Insulin DETEMIR 100 UNIT/ML X5UNITS SQ SCH (09:00)
--- NOTE | 2018-06-23 09:01 | Internal Med Progress Note ---
Hospitalist Progress Note - Encounter Date of Encounter: 06/23/18 Time of Encounter: 08:56 - Subjective Interval History: Patient seen and examined this morning at bedside. No acute overnight events. Denies new complaints. at bedside. Patient almost at baseline mentation. - Exam Vitals: Temp Pulse Resp BP Pulse Ox 98.5 F 74 15 130/79 96 06/23/18 07:56 06/23/18 07:56 06/23/18 07:56 06/23/18 07:56 06/23/18 07:56 Exam: General: In no acute distress. Conversant. Respiratory exam: CTAB. no accessory muscle use, rales, rhonchi, wheezes Cardiovascular exam: RRR, +S1, +S2. no murmur, gallop, rubs. GI/Abdominal exam: Non-tender, Non-distended, normal bowel sounds, soft, no peritoneal signs. Extremities exam: full ROM, no pedal edema, warm, pulses palpable in b/l lower extremities. no calf tenderness Neurological exam: CN II-XII intact, AO X, no focal deficits. no pronater drift, facial droop, speech deficit Skin exam: No skin rash, ulcer, purpura or ecchymosis. - Assessment and Plan (1) Uncontrolled type 2 diabetes mellitus with hyperglycemia Current Visit: No Status: Acute (2) Hypertension Current Visit: No Status: Acute (3) DVT prophylaxis Current Visit: No Status: Acute (4) Dysarthria Current Visit: Yes Status: Acute - Summary of Assessment and Plan Summary of Assessment and Plan: Dysarthria - concerns for CVA/TIA - MRI with no intracranial abnormality and mild chronic white matter changes. No embolic phenomenon. - EEG pending. Will get ECHO - Received plavix in ER. c/w aspirin and statin for now. Neurology consulted and following. appreciate recommendations. - CTA with 50% stenosis. Abnormal UA - without any symptoms - f/u urine cultures. - Hold off on antibiotics. Uncontrolled type 2 diabetes mellitus with hyperglycemia - cw/ levemir and sliding scale - Time Spent with Patient Total time spent is greater than 50% in coordination of care (as documented) at patient's floor/unit and/or counseling patient: Internal Medicine: Result - Labs CBC & Chem 7: 06/23/18 03:37 06/23/18 03:37 Labs: Short CBC 06/22/18 06/23/18 Range/Units 10:10 03:37 WBC 7.2 8.8 (4.3-11.1) K/mcL Hgb 11.0 L 10.4 L (12.9-16.9) g/dL Hct 35.8 L 33.5 L (37.5-50.1) % Plt Count 240 227 (140-400) K/mcL Neutrophils # 5.3 (1.6-8.9) K/mcL BMP 06/22/18 06/23/18 10:10 03:37 Sodium 137 135 L Potassium 3.8 3.6 Chloride 103 103 Carbon Dioxide 25 24 BUN 10 13 Creatinine 1.09 0.96 Glucose 220 H 174 H Calcium 9.6 9.3 Cardiac Enzymes 06/22/18 Range/Units 10:10 Troponin I < 0.03 (< 0.04) ng/mL Urine 06/22/18 Range/Units 10:10 Urine Color Yellow (Yellow) Urine Clarity Slightly Hazy (Clear) Urine pH 7.0 (5.0-8.0) pH Units Ur Specific [place] > 1.030 H (1.010-1.025) Urine Protein 30 H (Neg-Trace) mg/dL Urine Glucose (UA) Normal (Normal) mg/dL - ABG Interpretation ABG results: PT/INR, D-dimer PT 11.4 Seconds (9.4-12.1) 06/22/18 10:10 - Impressions Impressions Chest X-Ray 06/22/18 10:01 IMPRESSION: No acute cardiopulmonary disease. D/ / Isabel Delgado MD / Isabel Delgado MD Interpreting Provider: Isabel Delgado MD Head CTA 06/22/18 10:01 IMPRESSION: Mild, less than 50%, stenosis of the internal carotid arteries by NASCET criteria. No intracranial flow-limiting stenosis. D/ / 06/22/2018 11:53:06 Afriac Jean Baptiste MD / [facility] Interpreting Provider: [place] Jean Baptiste MD Neck CTA 06/22/18 10:02 IMPRESSION: Mild, less than 50%, stenosis of the internal carotid arteries by NASCET criteria. No intracranial flow-limiting stenosis. D/ / 06/22/2018 11:53:06 [place] Jean Baptiste MD / [facility] Interpreting Provider: [place] Jean Baptiste MD Head CT 06/22/18 10:09 IMPRESSION: No acute intracranial abnormality. D/ / 06/22/2018 11:07:00 [place] Jean Baptiste MD / [facility] Interpreting Provider: [place] Jean Baptiste MD Brain MRI 06/22/18 16:33 IMPRESSION: 1. No acute intracranial abnormality. 2. Mild chronic white matter microvascular ischemic changes. D/ / Donaldo Weber / Donaldo Weber Interpreting Provider: Donaldo Weber Consult Discharge Plan - Plan Referrals: Lucy Martinez MD [Primary Care Provider] - (2) Hypertension Qualifiers:
--- NOTE | 2018-06-23 10:29 | EEG/EMG/Oth Biometrics Report ---
EEG Procedure Report EEG Procedure: Routine EEG Procedure Note: This is a routine 21 channel digital EEG performed utilizing 10- 20 international electrode placement system. FINDINGS: Patient has a predominant waking background frequency that is average voltage 8 to 10 Hertz alpha activity in the posterior region, normal amplitude symmetrical over the both hemispheres reactive to eyes opening and closing record continued to show alpha activity intermixed with some theta off and on, no abnormal activity recorded, predominantly no evidence of any spike wave discharges or any lateralizing abnormalities, Photic stimulation and hyperventilation did not produce any convulsive response. Intermittent EMG artifacts were noted. Stage II sleep was not achieved. Impression: Normal awake drowsy electroencephalogram. No epileptiform discharges or any other paroxysmal activities noted. ( Please note that normal EEG does not exclude the diagnosis of seizures or epilepsy, clinical correlation is suggested)
[2018-06-23 11:38] LABS: Folate 21.8 ng/mL (3.0-16.0)
--- NOTE | 2018-06-23 11:40 | Electrocardiograph Report ---
[address] [address] Test Date: 2018-06-22 Pat Name: Alexandr Arauz Department: [id number] Room: [facility] Gender: M Testing Analyst: : 1950 Requested By: Jose Loera Order Number: [id number] Reading MD: Ananda Mckeon Measurements Intervals [place] Rate: 89 P: 60 NV: 206 QRS: 71 QRSD: 81 T: 25 QT: 351 QTc: 427 Interpretive Statements Sinus rhythm Electronically Signed On 06-23-2018 11:38:35 EST by Ananda Mckeon
[2018-06-23] MEDS: Aspirin Enteric Coated 81 MG Tablet PO SCH (17:06)
[2018-06-24 05:13] LABS: Hematocrit 33.9 % (37.5-50.1); Hemoglobin 10.3 g/dL (12.9-16.9); Mean Corpuscular HGB Conc 30.4 g/dL (31.6-35.5); Mean Platelet Volume 8.9 fL (9.4-12.4); Platelet Count 220 K/mcL (140-400); Red Blood Count 4.29 M/mcL (4.19-5.50); Red Cell Distribution Width 14.3 % (11.5-14.5)
[2018-06-24 05:23] LABS: BUN/Creatinine Ratio 14 (6-26); Blood Urea Nitrogen 14 mg/dL (8-23); Calcium 9.5 mg/dL (8.6-10.3); Carbon Dioxide 22 mEq/L (23-29); Chloride 106 mEq/L (98-107); Glucose 151 mg/dL (70-105); Osmolality,Calculated 289 (280-300); Potassium 3.5 mEq/L (3.5-5.1); Sodium 138 mEq/L (136-145); eGFR For Non-African Americans > 60 (> 60)
[2018-06-24 06:45] VITALS: BP 144/90
[2018-06-24] MEDS: Insulin LISPRO 300 UNITS/3 ML VIAL SQ SCH (10:02)
--- NOTE | 2018-06-24 10:09 | Discharge Summary ---
- NOTES TO OUTPATIENT PROVIDER Notes to Outpatient Provider: Patient had workup of stroke which was negative as well as EEG which was unremarkable. Orders not resulted at time of discharge: Pending orders 06/23/18 10:42 Vitamin B1 (Thiamine) Whole Bl Routine 06/25/18 04:00 BMP [Basic Metabolic Panel] AM 0400 CBC no Diff [Complete Blood Count w/o Diff] [HEME] AM 0400 06/26/18 04:00 BMP [Basic Metabolic Panel] AM 0400 CBC no Diff [Complete Blood Count w/o Diff] [HEME] AM 0400 Date of Encounter: 06/24/18 Time of Encounter: 10:06 - Discharge Diagnosis (1) Uncontrolled type 2 diabetes mellitus with hyperglycemia Priority: Secondary Status: Acute (2) Hypertension Priority: Secondary Status: Acute Qualifiers: Hypertension type: essential hypertension Qualified Code(s): I10 - Essential (primary) hypertension (3) Dysarthria Priority: Primary Status: Acute (4) Abnormal urinalysis Priority: Primary Status: Acute Hospital course: Mr. Arauz is a 68 year old male with past medical history of hypertension, diabetes who was brought in with complain of dysarthria with concerns of stroke. Patient was admitted for stroke workup and was seen by neurology. Head CT was unrmarkable. Patient's MRI was unremarkable and EEG was normal. Patient's limited echocardiogram was unremarkable as well as neck CTA done on admission showed less than 50% stenosis bilaterally. Patient on admission and abnormal UA which was sent for cultures which came out negative. Patient recovered quickly on the day of admission and did not require any antibiotics. Patient otherwise stable and will be discharged home to follow-up with PCP and neurology within a week Discharge discussed with: patient, family (38), nurse - Time Spent with Patient Total time spent providing and/or coordinating discharge services: Greater than 30 minutes - Discharge Medications Home Medications: Aspirin Enteric Coated [Aspirin EC] 81 mg PO QPM 03/16/18 [History] Atenolol [Tenormin] 50 mg PO BID 03/16/18 [History] Cholecalciferol (D-3) [Vitamin D] 2,000 unit PO DAILY 03/16/18 [History] Multivitamin [One Daily Essential] 1 tab PO DAILY 03/16/18 [History] Pantoprazole Sodium 40 mg PO BID 03/16/18 [History] amLODIPine [Norvasc] 5 mg PO DAILY 03/16/18 [History] DiphenhydraMINE [Benadryl] 25 mg PO HS 06/22/18 [History] Ferrous Sulfate 325 mg PO DAILY 06/22/18 [History] Insulin DETEMIR [Levemir Flextouch] 5 unit SQ DAILY 06/22/18 [History] Magnesium Oxide [Mag-Ox] 400 mg PO DAILY 06/22/18 [History] Metformin HCl [Glucophage Xr] 500 mg PO BID 06/22/18 [History] Rosuvastatin Calcium [Crestor] 40 mg PO DAILY 06/22/18 [History] Allergies/Adverse Reactions: Allergy/AdvReac Type Severity Reaction Status Date / Time No Known Allergies Allergy Verified 06/22/18 10:54 Date of admission: 06/22/18 12:57 Primary care physician: Lucy Martinez MD Consults: 06/22/18 12:33 Consult to Neurology [CONS] Stat Consulting Provider: Neurology [facility] Reason for Consult: dysarthria, confusion. stroke versus seizure Time Notified: 12:30 Call Completed: Yes 06/23/18 11:36 Consult to Interpret Exam [CONS] Routine Consulting Provider: Derrick Ballesteros Consult to Interpret Exam: Interpret EEG Discharging clinician: [place] Jean Baptiste - Constitutional Vitals: Temp Pulse Resp BP Pulse Ox 98.1 F 78 16 144/90 94 06/24/18 06:41 06/24/18 06:41 06/24/18 06:41 06/24/18 06:41 06/24/18 06:41 General appearance: Present: A&O X 3, no acute distress Exam: General: In no acute distress. Conversant. Respiratory exam: CTAB. no accessory muscle use, rales, rhonchi, wheezes Cardiovascular exam: RRR, +S1, +S2. no murmur, gallop, rubs. GI/Abdominal exam: Non-tender, Non-distended, normal bowel sounds, soft, no peritoneal signs. Extremities exam: full ROM, no pedal edema, warm, pulses palpable in b/l lower extremities. no calf tenderness Neurological exam: CN II-XII intact, AO X3, no focal deficits. no pronater drift, facial droop, speech deficit Skin exam: No skin rash, ulcer, purpura or ecchymosis. - Patient Status Disposition: Home, Self-Care Condition: Fair - Discharge Instructions Follow Up With: Lucy Martinez MD [Primary Care Provider] - (Web referral was made, provider will contact you via phone.) - Diet and Activity Activity: increase activity as tolerated
[2018-06-24] MEDS: Magnesium Oxide 400 MG TABLET PO SCH (10:15)
== END 2018-06-24 12:52 | disposition home or self-care (01) ==
LOC: EMEROOARM 09:48 → 2NENU 09:48 → SUATTDRO 12:57 → 2NENU 14:22
PROVIDERS: ADMIT Hospitalist; ATTEND Internal Medicine

== ENCOUNTER 2018-10-05 05:40 | Observation (INO) ==
--- NOTE | 2018-10-05 05:58 | Emergency Department Note ---
Disposition Clinical Impression: Seizure-like activity Disposition: Still a Patient Condition: Good Referrals: NONE,PCP [Primary Care Provider] - Forms: ED Satisfaction Letter Time of Disposition: 07:00 Seizure HPI - General Chief Complaint: ED Seizure Stated Complaint: seizure like activity Time Seen by Provider: 10/05/18 05:51 Source: patient, family, EMS Mode of arrival: EMS Limitations: age Nursing Notes Reviewed: Yes Vital Signs Reviewed: Yes - History of Present Illness HPI Narrative: Patient is a 68-year-old male with past medical history of dementia, diabetes, hypertension, hyperlipidemia. He presents today C2 seizure-like activity. is present states that the patient was admitted about a year ago in May at [facility]. During that stay, he had one episode of seizure-like activity where his arms were tremoring and he was less responsive. She states that he had an MRI and if further seizure workup but was never officially diagnosed with seizures. He is not currently on any antiepileptics. She states that the patient takes a sleeping pill at night and also uses CPAP at night. She states that he took a sleeping pill as usual before bedtime. She does state that he was in and out of bed all night and was taking his BiPAP/CPAP off all night. She stated that about an hour prior to arrival, she heard a fed and states that she found the patient in the floor outside of her bedroom in the h allway, his upper extremities were shaking and he was unresponsive. She did not note any tonic-clonic activity but does note that the patient did urinate and defecate himself. She said that this lasted for about 5 minutes and then stopped. The patient was confused for about 30 minutes after. She states that it took about 30 minutes for the EMS to arrive. EMS states that the patient was confused and appeared to be postictal. Patient does have a history of dementia but currently states that he is currently back to his baseline in the ED. The patient himself says he does not recall the event. Denies any prodromal symptoms before the event. Denies any chest pain, shortness breath, nausea, vomiting, fevers, diarrhea, numbness, tingling, weakness, headache, vision changes. - Related Data Home Medications Medication Instructions Recorded Confirmed Aspirin Enteric Coated [Aspirin EC] 81 mg PO QPM 03/16/18 06/22/18 Atenolol [Tenormin] 50 mg PO BID 03/16/18 06/22/18 Cholecalciferol (D-3) [Vitamin D] 2,000 unit PO DAILY 03/16/18 06/22/18 Multivitamin [One Daily Essential] 1 tab PO DAILY 03/16/18 06/22/18 Pantoprazole Sodium 40 mg PO BID 03/16/18 06/22/18 amLODIPine [Norvasc] 5 mg PO DAILY 03/16/18 06/22/18 DiphenhydraMINE [Benadryl] 25 mg PO HS 06/22/18 06/22/18 Ferrous Sulfate 325 mg PO DAILY 06/22/18 06/22/18 Insulin DETEMIR [Levemir Flextouch] 5 unit SQ DAILY 06/22/18 06/22/18 Magnesium Oxide [Mag-Ox] 400 mg PO DAILY 06/22/18 06/22/18 Metformin HCl [Glucophage Xr] 500 mg PO BID 06/22/18 06/22/18 Rosuvastatin Calcium [Crestor] 40 mg PO DAILY 06/22/18 06/22/18 Allergies Allergy/AdvReac Type Severity Reaction Status Date / Time No Known Allergies Allergy Verified 06/22/18 10:54 All systems ED: reviewed and negative except as stated. Constitutional: Denies: fever Cardiovascular: Denies: chest pain Respiratory: Denies: dyspnea Gastrointestinal: Denies: abdominal pain, nausea, vomiting, diarrhea Genitourinary: Denies: urgency, dysuria Musculoskeletal: Denies: back pain, neck pain Neurological: Reports: other (Seizure-like activity). Denies: headache, weakness, numbness, paresthesias Past Medical History - Past Medical History Attestation: Yes The following information was validated with the patient. Source: patient Medical history: Reports: diabetes, hyperlipidemia, hypertension, other Psychiatric history: Reports: no psych history - Social History Smoking Status: Former smoker Smokeless Tobacco Status: No Alcohol use: Reports: none Drug use: Reports: none Physical Exam - General Limitations: age General appearance: alert - Head Head exam: atraumatic, normocephalic, normal inspection - Eye Eye exam: Present: normal appearance, PERRL, EOMI - ENT ENT exam: normal exam, normal oropharynx, mucous membranes moist - Neck Neck exam: Present: normal inspection, full ROM, trachea midline - Chest Chest inspection: Present: normal inspection, symmetric chest wall rise - Respiratory Respiratory exam: Present: normal lung sounds bilaterally - Cardiovascular Cardiovascular exam: Present: regular rate, normal rhythm, normal heart sounds - Abdominal Exam Abdominal exam: Present: soft, Non-Tender. Absent: tenderness, distention, guarding, rebound, rigidity - Extremities Exam Extremities exam: Present: normal inspection, full ROM. Absent: tenderness, pedal edema - Neurological Exam Neurological exam: Present: alert, oriented X3, CN II-XII intact, other (Mildly slow to answer questions but does answer them appropriately). Absent: motor sensory deficit - Expanded Neurological Exam Patient oriented to: Present: person, place, time Speech: Present: fluid speech Cranial nerves: EOM function (II, III, IV, ): Normal, facial sensation (V): Normal, facial palsy (VII): Normal, spinal accessory function (XI): Normal, tongue deviation (XII): Normal Motor strength - LUE: 5/5 Motor strength - RUE: 5/5 Motor strength - LLE: 5/5 Motor strength - RLE: 5/5 Sensory exam upper extremity: light touch: Normal Sensory exam lower extremity: light touch: Normal Coma Scale Eye Opening: Spontaneous Coma Scale Motor Response: Obeys Commands Coma Scale Verbal Response: Oriented Coma Scale Total: 15 - Psychiatric Psychiatric exam: Present: flat affect - Skin Skin exam: Present: warm, dry, intact, normal color Course Course Narrative: Patient vitals within normal limits on my exam. No focal neurologic deficits. Patient was mildly slow to answer questions but did answer them appropriately. He is oriented 3. Heart, lung, abdominal exam within normal limits. No co mplaints of neck or back pain, no extremity injuries noted on exam. Due to age, questionable head injury/syncope, we will go ahead and obtain CT head and cervical spine. Patient is not on blood thinners. We will also obtain basic labs, CBC, BMP, trop, urinalysis. With patient having shaking of his upper extremities and loss of bowel and bladder control, this does sound like a seizure in nature. was adamant the patient has had seizure-like activity before maneuver officially diagnosed with seizures in the past. EKG obtained: 10/05/2018 at 05:53. Sinus rhythm. Rate 94. HI 26. QRS 13. QTC 464. Normal axis. Mild ST elevation in aVF. No other acute ST changes. Occasional PVCs. 06:37 no elevation white blood cell count. Urinalysis negative for UTI. BMP pending, trop negative. CT's pending. Will sign out to Dr. Isabel for further care and dispo. Vital Signs Temperature 98.5 F 10/05/18 05:44 Pulse Rate 96 10/05/18 05:44 Respiratory Rate 16 10/05/18 05:44 Blood Pressure 133/71 10/05/18 05:44 O2 Sat by Pulse Oximetry 92 10/05/18 05:44 Temperature 98.5 F 10/05/18 05:44 Pulse Rate 96 10/05/18 05:44 Respiratory Rate 16 10/05/18 05:44 Blood Pressure 133/71 10/05/18 05:44 O2 Sat by Pulse Oximetry 92 10/05/18 05:44 Oxygen Delivery Oxygen Delivery Room Air Seizure - MDM Narrative Medical decision making narrative: Patient vitals within normal limits on my exam. No focal neurologic deficits. Patient was mildly slow to answer questions but did answer them appropriately. He is oriented 3. Heart, lung, abdominal exam within normal limits. No complaints of neck or back pain, no extremity injuries noted on exam. Due to age, questionable head injury/syncope, we will go ahead and obtain CT head and cervical spine. Patient is not on blood thinners. We will also obtain basic labs, CBC, BMP, trop, urinalysis. With patient having shaking of his upper extremities and loss of bowel and bladder control, this does sound like a seizure in nature. was adamant the patient has had seizure-like activity before maneuver officially diagnosed with seizures in the past. EKG obtained: 10/05/2018 at 05:53. Sinus rhythm. Rate 94. HI 26. QRS 13. QTC 464. Normal axis. Mild ST elevation in aVF. No other acute ST changes. Occasional PVCs. 06:37 no elevation white blood cell count. Urinalysis negative for UTI. BMP pending, trop negative. CT's pending. Will sign out to Dr. Isabel for fur ther care and dispo. - Medical Records Medical records reviewed: Yes I reviewed the patient's medical records. - Lab Data Lab results reviewed: Yes I reviewed the patient's lab results. Result diagrams: 10/05/18 06:14 10/05/18 06:14 Lab Results 10/05/18 10/05/18 10/05/18 Range/Units 06:06 06:13 06:14 WBC 6.6 (4.3-11.1) K/mcL RBC 5.33 (4.19-5.50) M/mcL Hgb 13.0 (12.9-16.9) g/dL Hct 41.4 (37.5-50.1) % MCV 77.7 L (83.0-100.0) fL MCH 24.4 L (28.0-33.3) pg MCHC 31.4 L (31.6-35.5) g/dL RDW 17.3 H (11.5-14.5) % Plt Count 211 (140-400) K/mcL MPV 9.0 L (9.4-12.4) fL Immature Gran % 0.2 (0-4) % Seg Neutrophils % 82.3 % Lymphocytes % 11.0 % Monocytes % 4.7 % Eosinophils % 1.5 % Basophils % 0.3 % Neutrophils # 5.4 (1.6-8.9) K/mcL Lymphocytes # 0.7 (0.6-4.6) K/mcL Monocytes # 0.3 (0.0-1.3) K/mcL Eosinophils # 0.1 (0.0-0.6) K/mcL Basophils # 0.0 (0.0-0.2) K/mcL POC Glucose 222 H (70-99) mg/dL Urine Color Yellow (Yellow) Urine Clarity Clear (Clear) Urine pH 6.0 (5.0-8.0) pH Units Ur Specific Kimberly 1.012 (1.010-1.025) Urine Protein 100 H (Neg-Trace) mg/dL Urine Glucose (UA) 500 H (Normal) mg/dL Urine Ketones Negative (Negative) mg/dL Urine Blood Trace H (Negative) Urine Nitrite Negative (Negative) Urine Bilirubin Negative (Negative) Urine Urobilinogen Normal (Normal) mg/dL Ur Leukocyte Esterase Negative (Negative) - Radiology Data Radiology results reviewed: Yes I reviewed the patient's radiology results. Con - Con Situation: Demographics, MOA Background: Presenting Complaint, Relevant PMH, Meds, & Allergies Assessment: Vital Signs, Course and respsone to treatment, Exam Concerns, Patient/Family Expectation, Pertinant Lab Results Recommendation: Barrier(s) to disposition, Recommendation based on pending stud ies, treatments, or consults S.B.A.R. Report Given to: Dr. Isabel Attestation Statement - Attestation Attestation: Dr. Atkinson note: Patient seen in conjunction with emergency resident Dr. Darwin Cantor. Please see his charting for complete documentation. I spent [id number] time with the patient and I agree with the patient's treatment and disposition; mild baseline dementia. at bedside reports normal mental status around 10 PM he went to bed. Some syncopal event with shaking activity which lasted minutes with minutes followed by a ordering a 30 minute postictal phase which persisted until patient's arrival in the ER. History of similar such episode a few months ago for which she had prior testing and seizure was not confirmed. Will have CT imaging at this time and then disposition. Blood work is stable. Mental status is normalizing.
[2018-10-05 06:23] LABS: Bilirubin,Urine Negative (Negative); Blood,Urine Trace (Negative); Clarity,Urine Clear (Clear); Color,Urine Yellow (Yellow); Glucose,Urine (UA) 500 mg/dL (Normal); Ketones,Urine Negative (Negative); Leukocyte Esterase,Urine Negative (Negative); Nitrite,Urine Negative (Negative); Protein,Urine 100 mg/dL (Neg-Trace); Specific Gravity,Urine 1.012 (1.010-1.025); Urobilinogen,Urine Normal (Normal)
[2018-10-05 06:25] LABS: Bacteria,Urine None Seen per hpf (None-Few); Hyaline Casts,Urine None Seen per lpf (None-Few); RBC,Urine 0-3 per hpf (0-3); Squamous Epithelial Cell,Urine Many per lpf (None-Few)
[2018-10-05 06:25] LABS: Hematocrit 41.4 % (37.5-50.1); Immature Granulocytes % 0.2 % (0-4); Mean Corpuscular HGB Conc 31.4 g/dL (31.6-35.5); Mean Corpuscular Hemoglobin 24.4 pg (28.0-33.3); Mean Corpuscular Volume 77.7 fL (83.0-100.0); Platelet Count 211 K/mcL (140-400); Red Blood Count 5.33 M/mcL (4.19-5.50); Red Cell Distribution Width 17.3 % (11.5-14.5); Segmented Neutrophils % 82.3 %
[2018-10-05 06:26] LABS: Basophils % 0.3 %; Eosinophils # 0.1 K/mcL (0.0-0.6); Eosinophils % 1.5 %; Lymphocytes # 0.7 K/mcL (0.6-4.6); Monocytes # 0.3 K/mcL (0.0-1.3); Monocytes % 4.7 %; Neutrophils # 5.4 K/mcL (1.6-8.9)
[2018-10-05 06:34] LABS: Sperm,Urine Present
[2018-10-05 06:49] LABS: BUN/Creatinine Ratio 9 (6-26); Blood Urea Nitrogen 11 mg/dL (8-23); Calcium 9.3 mg/dL (8.6-10.3); Carbon Dioxide 22 mEq/L (23-29); Chloride 102 mEq/L (98-107); Glucose 259 mg/dL (70-105); Osmolality,Calculated 290 (280-300); Potassium 4.1 mEq/L (3.5-5.1); Sodium 136 mEq/L (136-145); Troponin I < 0.03 ng/mL (< 0.04); eGFR For Non-African Americans 58 (> 60)
[2018-10-05] MEDS ORDERED: levETIRAcetam 1,000 MG in 0.9 % Sodium Chloride 100 ML IVPB ONE (08:53)
[2018-10-05 08:58] LABS: Creatine Kinase 153 Units/L (30-223)
--- NOTE | 2018-10-05 09:06 | Emergency Department Note ---
Disposition Clinical Impression: Seizure-like activity Disposition: Admitted As Inpatient Condition: Good Referrals: NONE,PCP [Primary Care Provider] - Forms: ED Satisfaction Letter General Adult HPI - General Chief complaint: ED Seizure Stated complaint: seizure like activity Time Seen by Provider: 10/05/18 05:51 Source: patient, family, EMS Mode of arrival: EMS Limitations: age - History of Present Illness Pain Scale: 0 - Related Data Home Medications Medication Instructions Recorded Confirmed Aspirin Enteric Coated [Aspirin EC] 81 mg PO QPM 03/16/18 06/22/18 Atenolol [Tenormin] 50 mg PO BID 03/16/18 06/22/18 Cholecalciferol (D-3) [Vitamin D] 2,000 unit PO DAILY 03/16/18 06/22/18 Multivitamin [One Daily Essential] 1 tab PO DAILY 03/16/18 06/22/18 Pantoprazole Sodium 40 mg PO BID 03/16/18 06/22/18 amLODIPine [Norvasc] 5 mg PO DAILY 03/16/18 06/22/18 DiphenhydraMINE [Benadryl] 25 mg PO HS 06/22/18 06/22/18 Ferrous Sulfate 325 mg PO DAILY 06/22/18 06/22/18 Insulin DETEMIR [Levemir Flextouch] 5 unit SQ DAILY 06/22/18 06/22/18 Magnesium Oxide [Mag-Ox] 400 mg PO DAILY 06/22/18 06/22/18 Metformin HCl [Glucophage Xr] 500 mg PO BID 06/22/18 06/22/18 Rosuvastatin Calcium [Crestor] 40 mg PO DAILY 06/22/18 06/22/18 Allergies Allergy/AdvReac Type Severity Reaction Status Date / Time No Known Allergies Allergy Verified 06/22/18 10:54 Constitutional: Denies: fever Cardiovascular: Denies: chest pain Respiratory: Denies: dyspnea Gastrointestinal: Denies: abdominal pain, nausea, vomiting, diarrhea Genitourinary: Denies: urgency, dysuria Musculoskeletal: Denies: back pain, neck pain Neurological: Reports: other (Seizure-like activity). Denies: headache, weakness, numbness, paresthesias Past Medical History - Past Medical History Medical history: Reports: diabetes, hyperlipidemia, hypertension, other Psychiatric history: Reports: no psych history - Social History Smoking Status: Former smoker Smokeless Tobacco Status: No Alcohol use: Reports: none Drug use: Reports: none Physical Exam - General Limitations: age General appearance: alert Course Vital Signs Temperature 98.5 F 10/05/18 05:44 Pulse Rate 96 10/05/18 05:44 Respiratory Rate 16 10/05/18 05:44 Blood Pressure 133/71 10/05/18 05:44 O2 Sat by Pulse Oximetry 92 10/05/18 05:44 Temperature 98.5 F 10/05/18 05:44 Pulse Rate 87 10/05/18 06:42 Respiratory Rate 20 10/05/18 06:42 Blood Pressure 125/70 10/05/18 06:42 O2 Sat by Pulse Oximetry 93 10/05/18 06:42 Oxygen Delivery Oxygen Delivery Room Air Medical Decision Making - MDM Narrative Medical decision making narrative: The case was discussed with the hospitalist accepted by the hospitalist service the case was discussed with the on-call neurologist who will consult on the patient the patient will be started on Keppra currently since this is a repeat seizure-like activity and further evaluation will be done in the inpatient [facility] Lab Data Result diagrams: 10/05/18 06:14 10/05/18 06:14 Lab Results 10/05/18 10/05/18 10/05/18 Range/Units 06:06 06:13 06:14 WBC 6.6 (4.3-11.1) K/mcL RBC 5.33 (4.19-5.50) M/mcL Hgb 13.0 (12.9-16.9) g/dL Hct 41.4 (37.5-50.1) % MCV 77.7 L (83.0-100.0) fL MCH 24.4 L (28.0-33.3) pg MCHC 31.4 L (31.6-35.5) g/dL RDW 17.3 H (11.5-14.5) % Plt Count 211 (140-400) K/mcL MPV 9.0 L (9.4-12.4) fL Immature Gran % 0.2 (0-4) % Seg Neutrophils % 82.3 % Lymphocytes % 11.0 % Monocytes % 4.7 % Eosinophils % 1.5 % Basophils % 0.3 % Neutrophils # 5.4 (1.6-8.9) K/mcL Lymphocytes # 0.7 (0.6-4.6) K/mcL Monocytes # 0.3 (0.0-1.3) K/mcL Eosinophils # 0.1 (0.0-0.6) K/mcL Basophils # 0.0 (0.0-0.2) K/mcL Sodium (136-145) mEq/L Potassium (3.5-5.1) mEq/L Chloride (98-107) mEq/L Carbon Dioxide (23-29) mEq/L BUN (8-23) mg/dL Creatinine (0.70-1.30) mg/dL Est GFR ( Amer) (> 60) Est GFR (Non-Af Amer) (> 60) BUN/Creatinine Ratio (6-26) Glucose (70-105) mg/dL POC Glucose 222 H (70-99) mg/dL Calculated Osmolality (280-300) Calcium (8.6-10.3) mg/dL Creatine Kinase (30-223) Units/L Troponin I (< 0.04) ng/mL Urine Color Yellow (Yellow) Urine Clarity Clear (Clear) Urine pH 6.0 (5.0-8.0) pH Units Ur Specific [place] 1.012 (1.010-1.025) Urine Protein 100 H (Neg-Trace) mg/dL Urine Glucose (UA) 500 H (Normal) mg/dL Urine Ketones Negative (Negative) mg/dL Urine Blood Trace H (Negative) Urine Nitrite Negative (Negative) Urine Bilirubin Negative (Negative) Urine Urobilinogen Normal (Normal) mg/dL Ur Leukocyte Esterase Negative (Negative) Urine Microscopic RBC 0-3 (0-3) per hpf Urine Microscopic WBC 3-5 H (0-3) per hpf Ur Squamous Epith Cells Many H (None-Few) per lpf Urine Bacteria None Seen (None-Few) per hpf Hyaline Casts None Seen (None-Few) per lpf Urine Sperm Present Ur Culture Indicated? NO (NO) 10/05/18 Range/Units 06:14 WBC (4.3-11.1) K/mcL RBC (4.19-5.50) M/mcL Hgb (12.9-16.9) g/dL Hct (37.5-50.1) % MCV (83.0-100.0) fL MCH (28.0-33.3) pg MCHC (31.6-35.5) g/dL RDW (11.5-14.5) % Plt Count (140-400) K/mcL MPV (9.4-12.4) fL Immature Gran % (0-4) % Seg Neutrophils % % Lymphocytes % % Monocytes % % Eosinophils % % Basophils % % Neutrophils # (1.6-8.9) K/mcL Lymphocytes # (0.6-4.6) K/mcL Monocytes # (0.0-1.3) K/mcL Eosinophils # (0.0-0.6) K/mcL Basophils # (0.0-0.2) K/mcL Sodium 136 (136-145) mEq/L Potassium 4.1 (3.5-5.1) mEq/L Chloride 102 (98-107) mEq/L Carbon Dioxide 22 L (23-29) mEq/L BUN 11 (8-23) mg/dL Creatinine 1.24 (0.70-1.30) mg/dL Est GFR ( Amer) > 60 (> 60) Est GFR (Non-Af Amer) 58 L (> 60) BUN/Creatinine Ratio 9 (6-26) Glucose 259 H (70-105) mg/dL POC Glucose (70-99) mg/dL Calculated Osmolality 290 (280-300) Calcium 9.3 (8.6-10.3) mg/dL Creatine Kinase 153 (30-223) Units/L Troponin I < 0.03 (< 0.04) ng/mL Urine Color (Yellow) Urine Clarity (Clear) Urine pH (5.0-8.0) pH Units Ur Specific [place] (1.010-1.025) Urine Protein (Neg-Trace) mg/dL Urine Glucose (UA) (Normal) mg/dL Urine Ketones (Negative) mg/dL Urine Blood (Negative) Urine Nitrite (Negative) Urine Bilirubin (Negative) Urine Urobilinogen (Normal) mg/dL Ur Leukocyte Esterase (Negative) Urine Microscopic RBC (0-3) per hpf Urine Microscopic WBC (0-3) per hpf Ur Squamous Epith Cells (None-Few) per lpf Urine Bacteria (None-Few) per hpf Hyaline Casts (None-Few) per lpf Urine Sperm Ur Culture Indicated? (NO)
[2018-10-05] MEDS ORDERED: Naloxone 0.4 MG/ML INJ IVP PRN (09:50)
--- NOTE | 2018-10-05 09:56 | Internal Med History&Physical ---
Date of Encounter: 10/05/18 Time of Encounter: 08:40 Internal Medicine - H&P: HPI Chief complaint: seizures Admitted From: Home Plans for Post Hospital Care: Home History of present illness: Mr. Arauz is a 68 year old male with history of diabetes, heavy alcohol use history, prostate cancer presented to the emergency department with seizure like activity. Patient cannot recall any of the events so the history was obtained from and daughter at bedside. As per he got up about 11:30 PM and was seen in the saenz and when asked what he is doing he could not respond so she helped him back to bed. But an hour later he found that heat episode of urinary incontinence which was unusual for him, so she changed him and placed him back in bed. about 4 AM she heard a loud thump and she went outside of her room and found him laying on the floor unresponsive. He had abnormal movement of his bilateral upper extremities, she denies any foaming of the mouth or further episodes of incontinence. It took ambulance about 30 minutes to get to the home and he remained confused and not responsive to her commands. He cannot recall if he had any head trauma. Currently he is alert and and oriented 3 and feeling back at baseline. As per family for the past 1 year he has been having worsening dementia and he has been worked up at [facility] and [place] without any final diagnosis. He has an appointment with the cognitive physician this week. As per family last year, the patient had prostate surgery. After the surgery, he was noted to have seizure-like activity and when he was sent to CT scan as an inpatient, He was worked up at [place] and there is no etiology for the seizure-like activity. Patient also has a long history of alcoholic abuse now he drinks only 1-2 beers a day he had been in the rehabilitation for detoxification in the past. He denies any history of syphilis, no sick contacts, denies any history of strokes. He denies fever, chills, nausea, vomiting, diarrhea, chest pain, palpitations, abdominal pain, cold or heat intolerance, recent head trauma. He does report that he had pinkeye of the right eye and now his left eye has been bothering him and has become red. He denies pain, loss of vision of the left eye and reports that its itching. While in the emergency department CT head and cervical spine was performed and he was cleared from a trauma perspective and was endorsed for admission for further evaluation of questionable seizures and worsening dementia. Past Med Surg Social Fam HX - Past Medical History Medical history: diabetes, hyperlipidemia, hypertension, other Additional medical history: Coded in May 2018 Psychiatric history: no psych history - Past Surgical History Additional surgical history: prostate surgery - Social History Smoking Status: Former smoker Smokeless Tobacco Status: No Alcohol use: none Drug use: none Internal Medicine - H&P: Meds Aspirin Enteric Coated [Aspirin EC] 81 mg PO QPM 03/16/18 [History] Atenolol [Tenormin] 25 mg PO BID 03/16/18 [History] Cholecalciferol (D-3) [Vitamin D] 2,000 unit PO DAILY 03/16/18 [History] Multivitamin [One Daily Essential] 1 tab PO DAILY 03/16/18 [History] Pantoprazole Sodium 40 mg PO BID 03/16/18 [History] amLODIPine [Norvasc] 5 mg PO DAILY 03/16/18 [History] DiphenhydraMINE [Benadryl] 25 mg PO HS 06/22/18 [History] Ferrous Sulfate 325 mg PO DAILY 06/22/18 [History] Insulin DETEMIR [Levemir Flextouch] 12 unit SQ DAILY 06/22/18 [History] Magnesium Oxide [Mag-Ox] 400 mg PO DAILY 06/22/18 [History] Metformin HCl [Glucophage Xr] 500 mg PO BID 06/22/18 [History] Rosuvastatin Calcium [Crestor] 40 mg PO DAILY 06/22/18 [History] Allergy/AdvReac Type Severity Reaction Status Date / Time No Known Allergies Allergy Verified 06/22/18 10:54 All Systems PM: A 10-system review of systems was performed and is negative for pertinent findings except as documented above in the HPI. - Constitutional Vitals: Temp Pulse Resp BP Pulse Ox 98.5 F 87 16 136/82 95 10/05/18 05:44 10/05/18 09:29 10/05/18 09:29 10/05/18 09:29 10/05/18 09:29 Exam: General: Patient is alert, oriented, no acute distress, overweight Head: atraumatic, normocephalic, Eye: Left pinkeye, no nystagmus, unable to perform reactivity to light as patient has pinkeye and is unable to hold his eyes open. mild crusting of the left eye. ENT: mucous membranes moist, normal external ear exam Neck: normal inspection, trachea midline, full ROM Chest: normal inspection, symmetric chest rise Respiratory: Good respiratory effort. Bilateral breath sounds are clear without wheezing, crackles, or rhonchi. Cardiovascular: Regular rate and rhythm. s1 and s2 No clicks, rubs, gallops, or murmors. Abdomen: Bowel sounds present normoactive x-4 quadrants. Abdomen is soft, nondistended. no Epigastric tenderness. No guarding or rebound. No organomegaly noted, obese musculoskeletal: Spontaneously moving all extremities. no edema, no calf tenderness Skin: warm, dry, intact. Neuro: Alert and oriented x 3 no focal deficit Psych: Patient's affect is normal Internal Med - H&P Results - Labs CBC & Chem 7: 10/05/18 06:14 10/05/18 06:14 Labs: Short CBC 10/05/18 Range/Units 06:14 WBC 6.6 (4.3-11.1) K/mcL Hgb 13.0 (12.9-16.9) g/dL Hct 41.4 (37.5-50.1) % Plt Count 211 (140-400) K/mcL Neutrophils # 5.4 (1.6-8.9) K/mcL BMP 10/05/18 06:14 Sodium 136 Potassium 4.1 Chloride 102 Carbon Dioxide 22 L BUN 11 Creatinine 1.24 Glucose 259 H Calcium 9.3 Cardiac Enzymes 10/05/18 Range/Units 06:14 Troponin I < 0.03 (< 0.04) ng/mL Urine 10/05/18 Range/Units 06:06 Urine Color Yellow (Yellow) Urine Clarity Clear (Clear) Urine pH 6.0 (5.0-8.0) pH Units Ur Specific [place] 1.012 (1.010-1.025) Urine Protein 100 H (Neg-Trace) mg/dL Urine Glucose (UA) 500 H (Normal) mg/dL - EKG Data -: EKG Interpreted by Myself (EKG with lead reversal/ was asked to repeat it ) - EKG Data Prior EKG available for review: yes - Impressions ITS Impressions Cervical Spine CT 10/05/18 05:52 IMPRESSION: No acute intracranial abnormality. Degenerative changes of the cervical spine and generalized straightening of the normal cervical lordosis. No fracture or malalignment. D/ / Anthony Alarcon MD / Anthony Alarcon MD Interpreting Provider: Anthony Alarcon MD Head CT 10/05/18 05:52 IMPRESSION: No acute intracranial abnormality. Degenerative changes of the cervical spine and generalized straightening of the normal cervical lordosis. No fracture or malalignment. D/ / Anthony Alarcon MD / Anthony Alarcon MD Interpreting Provider: Anthony Alarcon MD - Assessment and Plan (1) Seizure-like activity Current Visit: Yes Status: Acute Assessment and plan: Possibly his second tonic-clonic seizure episode vs cardiogenic syncope ( less likely) does have long history of alcohol use telemetry alcohol level and utox ordered Neurology was consulted in the emergency department will defer further imaging, LP to neurology Was loaded with Keppra continue with 500 mg twice a day Seizure, aspiration, fall precautions Ativan 2 mg when necessary for breakthrough seizures CPK/Mg/Phosporus EEG, VDRL Continue home medications if not contraindicated Vitals as nursing protocol Activity: Bed Rest Precaution: Fall, aspiration, Seizure. seizure restrictions such as driving was discussed. CT head and cervical spine 10/05/18- No acute intracranial abnormality. Degenerative changes of the cervical spine and generalized straightening of the normal cervical lordosis. No fracture or malalignment. EEG Normal awake drowsy electroencephalogram. No epileptiform discharges or any other paroxysmal activities noted. TTE 06/2018- Impressions: LVEF 60-65%. Normal LV chamber size, wall thickness and function. No evidence of a PFO with agitated saline contrast MRI 06/2018 IMPRESSION: 1. No acute intracranial abnormality. 2. Mild chronic white matter microvascular ischemic changes. (2) Acute encephalopathy Current Visit: Yes Status: Acute Assessment and plan: Most likely secondary to seizure and postictal state rule out other etiologies Now resolved- currently alert and oriented 3 Neurology was consulted will follow recommendations Seizure, fall precautions Neuro checks every 4 hours (3) Conjunctivitis Current Visit: Yes Status: Acute Assessment and plan: acute left sided conjunctivitis, recently had viral conjunctivitis of the right eye 1 week ago) continue with lubricant eye drops, will also add antimicrobial eye drops ( has crusting) was counseled on hand hygeine Qualifiers: Qualified Code(s): H10.32 - Unspecified acute conjunctivitis, left eye (4) IDDM (insulin dependent diabetes mellitus) Current Visit: Yes Status: Acute Assessment and plan: continue with sliding scale adjust as per finger sticks A1c in AM (5) History of ETOH abuse Current Visit: No Status: Acute Assessment and plan: thiamine, folic acid alcohol level, utox ordered neurochecks fall, seizure, aspiration precaution. (6) DVT prophylaxis Current Visit: No Status: Acute Assessment and plan: heparin sc - Time Spent With Patient Total time spent is greater than 50% in coordination of care (as documented) at patient's floor/unit and/or counseling patient:
[2018-10-05] MEDS ORDERED: *HR* LORazepam 2 MG/ML VIAL IVP PRN (10:12)
[2018-10-05] MEDS ORDERED: Sod Borate/Boric acid/NaCl 118 ML IRRIG.SOLN OP ONE (10:28)
[2018-10-05] MEDS ORDERED: Dextrose Gel 15 GM/37.5 ML TUBE PO PRN ×2 (10:32)
[2018-10-05] MEDS ORDERED: *HR* Dextrose 50 % in Water (Syg) 50 ML SYRINGE IVP PRN (10:32)
[2018-10-05] MEDS ORDERED: D5% in Water 1,000 ML IVC PRN (10:32)
[2018-10-05] MEDS: Insulin LISPRO 300 UNITS/3 ML VIAL SQ SCH ×2 (12:04→16:43)
--- NOTE | 2018-10-05 12:09 | Neurology - Consult Note ---
<Abram Noble J - Last Filed: 10/05/18 12:00> Date of Encounter: 10/05/18 Time of Encounter: 12:00 Assessment and Plan (1) Seizure-like activity Current Visit: Yes Status: Acute Present with concerns for seizures Spouse reports tonic-clonic activity early this morning This is the second event of tonic-clonic activity in the last few months; first occurring at [place] with a negative workup Recent MR brain 06/2018 unremarkable, no focus of seizures found; no need for repeat MRI at this time Previous EEG's did not identify any interictal activity He has a h/o severe alcohol abuse and I suspect that this may be the cause of seizures However, he has been without ETOH for almost 1 year Family denies any drug abuse Chemistry panel unremarkable No meningeal signs or exam findings concerning for BEAN SORTER infection; no need for LP at this time Does not take any AED's Given IV Keppra loading dose in ED; Keppra 500mg BID started continue with Ativan for breakthrough seizures continue seizure precautions and aspiration precautions UDS pending B12, and Thiamine pending EEG Neuro exam is non focal and non lateralizing. Clinically, the patient is stable at this time. We will continue to follow. Workup as stated pending. History of Present Illness Chief complaint: seizures HPI: Mr. Arauz is a 68 year old male with a PMH of DM, former chronic heavy alcohol abuse x 50 years, prostate cancer and most notably recent questionable seizure activity. His and daughter are at the bedside and they note that yesterday evening the patient awoke at 1130pm in a confused state. After going back to bed he reawoke at around 230am and had had an episode of urinary incontinence. Shortly thereafter, at approximately 0430am his spouse reports that she awoke d/t a "loud thump" and found him on the floor unresponsive with b/l arm and torso shaking. She says the event lasted for a "minute or so" and that after her seemed confused and was difficult to arouse for approximately 30minutes. At the time of my assessment he is A&OX3 but is still unable to recall any of the events leading up to admission. His family reports that he was diagnosed with dementia 1 year ago and does have short term memory impairment. Also, of note they mention a prior tonic-clonic episode at [facility] a few months prior and the subsequent workup there was unrevealing. He has had a recent MRI at [facility] in which did not reveal any acute findings. His chemistry panel today is unremarkable. Continue with seizure workup. Past Med Surg Social Fam HX - Past Medical History Medical history: diabetes, hyperlipidemia, hypertension, other Additional medical history: Coded in May 2018 Psychiatric history: no psych history - Past Surgical History Additional surgical history: prostate surgery - Social History Smoking Status: Former smoker Smokeless Tobacco Status: No Alcohol use: none Drug use: none - Family History Mother Hx Family Endocrine Disorder: No Medications and Allergies Aspirin Enteric Coated [Aspirin EC] 81 mg PO QPM 03/16/18 [History] Atenolol [Tenormin] 25 mg PO BID 03/16/18 [History] Cholecalciferol (D-3) [Vitamin D] 2,000 unit PO DAILY 03/16/18 [History] Multivitamin [One Daily Essential] 1 tab PO DAILY 03/16/18 [History] Pantoprazole Sodium 40 mg PO BID 03/16/18 [History] amLODIPine [Norvasc] 5 mg PO DAILY 03/16/18 [History] Ferrous Sulfate 325 mg PO DAILY 06/22/18 [History] Magnesium Oxide [Mag-Ox] 400 mg PO DAILY 06/22/18 [History] Metformin HCl [Glucophage Xr] 500 mg PO BID 06/22/18 [History] Rosuvastatin Calcium [Crestor] 40 mg PO DAILY 06/22/18 [History] Insulin Glargine,Hum.rec.anlog [Lantus Solostar] 12 - 13 units SQ HS 10/05/18 [History] Allergy/AdvReac Type Severity Reaction Status Date / Time No Known Allergies Allergy Verified 10/05/18 17:30 All Systems: The remainder of the systems were reviewed and are negative - Constitutional Constitutional ROS IM: no fatigue, no fever(s), no headache(s) - Nose, Mouth, Throat Nose, mouth and throat: no dizziness, no headache(s) - Cardiovascular Cardiovascular ROS IM: no irregular heart rhythm, no palpitations - Neurological Neurological ROS: abnormal movements, confusion, other (tonic-clonic activity), no abnormal speech, no disequilibrium, no dizziness, no focal weakness, no headache(s), no sensory deficit, no syncope, no weakness Physical Examination - Vital Signs Vital Signs: Initial Vital Signs Temp Pulse Resp BP Pulse Ox 98.5 F 96 16 133/71 92 10/05/18 05:44 10/05/18 05:44 10/05/18 05:44 10/05/18 05:44 10/05/18 05:44 - Constitutional General appearance: comfortable - Neurologic Sensorimotor examination: intact Detailed motor examination: full strength in all major muscle groups Motor examination - right side: 5/5: deltoids, biceps, triceps, wrist flexion, wrist extension, senior scientist, hip flexors, tibialis Anterior, quadriceps, toe extension (EHL), plantarflexion Motor examination - left side: 5/5: deltoids, biceps, triceps, wrist flexion, wrist extension, hip flexors, senior scientist, quadriceps, tibialis Anterior, toe extension (EHL), plantarflexion Detailed sensory examination: intact, light touch Reflex and gait examination: intact Reflexes: Biceps: 2+, Triceps: 2+, Brachioradialis: 2+, Patella: 2+, Achilles: 2+ Mental Status Examination: awake, alert, oriented to person, oriented to place, oriented to time, follows commands appropriately, answers questions appropriately, no agnosia, no aphasia, no aproxia Cranial nerve examination: PERRL, EOMI, visual shah intact, corneal reflexes brisk symmetrically, sensory to face intact, mastication intact, no facial asymmetry is present, no dysarthria, hearing is intact symmetrically, soft palate elevates bilaterally upon phonation, gag reflex intact, flexes SCM and trapezius muscles symmetrically with full power, tongue protrudes midline, no atrophy or facial fasiculations present Cerebellar examination: no dysmetria, performs finger to nose and heel to munguia symmetrically without ataxia, no gait ataxia, no truncal ataxia, no difficulty with rapid alternating movements Results - Laboratory Findings CBC and BMP: 10/05/18 06:14 10/05/18 06:14 Abnormal lab findings: Abnormal lab results MCV 77.7 fL (83.0-100.0) L 10/05/18 06:14 MCH 24.4 pg (28.0-33.3) L 10/05/18 06:14 MCHC 31.4 g/dL (31.6-35.5) L 10/05/18 06:14 RDW 17.3 % (11.5-14.5) H 10/05/18 06:14 MPV 9.0 fL (9.4-12.4) L 10/05/18 06:14 Carbon Dioxide 22 mEq/L (23-29) L 10/05/18 06:14 Est GFR (Non-Af Amer) 58 (> 60) L 10/05/18 06:14 Glucose 259 mg/dL (70-105) H 10/05/18 06:14 POC Glucose 222 mg/dL (70-99) H 10/05/18 06:13 100 mg/dL (Neg-Trace) H 10/05/18 06:06 500 mg/dL (Normal) H 10/05/18 06:06 Trace (Negative) H 10/05/18 06:06 3-5 per hpf (0-3) H 10/05/18 06:06 Ur Squamous Epith Cells Many per lpf (None-Few) H 10/05/18 06:06 - Diagnostic Findings Additional findings: CT/CT head/brain wo con IMPRESSION: No acute intracranial abnormality. Degenerative changes of the cervical spine and generalized straightening of the normal cervical lordosis. No fracture or malalignment. Consult Discharge Plan - Plan Referrals: NONE,PCP [Primary Care Provider] - <Levar Young I - Last Filed: 10/06/18 08:32> Date of Encounter: 10/05/18 Assessment and Plan (1) Seizure-like activity Current Visit: Yes Status: Acute I have personally performed a face to face diagnostic evaluation, including HPI, EXAM, which is included in the Assesment and plan, which was discussed with Abram Noble CNP, I agree with the above outlined documentation. Patient had a similar event earlier had workup at [facility], no need to repeat MRI scan at this time, nonfocal neurological examination, suggest blood Work ,UDS as well as EEG continue on Kera with seizure precautions eLvar Young MD. NeurologyI History of Present Illness HPI: Mr. Arauz is a 68 year old male All Systems: The remainder of the systems were reviewed and are negative Physical Examination - Vital Signs Vital Signs: Initial Vital Signs Temp Pulse Resp BP Pulse Ox 98.5 F 96 16 133/71 92 10/05/18 05:44 10/05/18 05:44 10/05/18 05:44 10/05/18 05:44 10/05/18 05:44 Results - Laboratory Findings CBC and BMP: 10/06/18 03:53 10/06/18 03:53 Abnormal lab findings: Abnormal lab results MCV 77.7 fL (83.0-100.0) L 10/05/18 06:14 MCH 24.4 pg (28.0-33.3) L 10/05/18 06:14 MCHC 31.4 g/dL (31.6-35.5) L 10/05/18 06:14 RDW 17.3 % (11.5-14.5) H 10/05/18 06:14 MPV 9.0 fL (9.4-12.4) L 10/05/18 06:14 Carbon Dioxide 22 mEq/L (23-29) L 10/05/18 06:14 Est GFR (Non-Af Amer) 58 (> 60) L 10/05/18 06:14 Glucose 259 mg/dL (70-105) H 10/05/18 06:14 POC Glucose 222 mg/dL (70-99) H 10/05/18 06:13 > 22.3 ng/mL (3.0-16.0) H 10/05/18 12:03 100 mg/dL (Neg-Trace) H 10/05/18 06:06 500 mg/dL (Normal) H 10/05/18 06:06 Trace (Negative) H 10/05/18 06:06 3-5 per hpf (0-3) H 10/05/18 06:06 Ur Squamous Epith Cells Many per lpf (None-Few) H 10/05/18 06:06
[2018-10-05] MEDS: amLODIPine 5 MG TABLET PO SCH (12:11)
[2018-10-05] MEDS: Thiamine (B-1) 100 MG TABLET PO SCH (12:11)
[2018-10-05] MEDS: Folic Acid 1 MG TABLET PO SCH (12:12)
[2018-10-05 13:14] LABS: Folate > 22.3 ng/mL (3.0-16.0); Vitamin B12 385 pg/mL (250-1100)
--- NOTE | 2018-10-05 14:55 | Electrocardiograph Report ---
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
[2018-10-05] MEDS: *HR* Heparin 5,000 UNIT/ML VIAL SQ SCH ×2 (15:11→21:43)
[2018-10-05] MEDS: Artificial Tears SOLN 15 ML BOTTLE LEFT EYE SCH ×3 (15:11→21:45)
[2018-10-05] MEDS: Ciprofloxacin HCL Soln 5 ML BOTTLE LEFT EYE SCH ×3 (15:11→21:46)
[2018-10-05] MEDS ORDERED: Aspirin Enteric Coated 81 MG Tablet PO SCH (18:00)
[2018-10-05] MEDS ORDERED: Insulin DETEMIR 100 UNIT/ML X5UNITS SQ SCH (21:00)
[2018-10-05] MEDS ORDERED: Insulin LISPRO 300 UNITS/3 ML VIAL SQ SCH (21:00)
[2018-10-05 23:17] LABS: Amphetamine Screen,Urine Negative ng/mL (Cutoff=1000); Barbiturate Screen,Urine Negative ng/mL (Cutoff=200); Benzodiazepines Screen,Urine Negative ng/mL (Cutoff=200); Cannabinoid Screen,Urine Negative ng/mL (Cutoff = 50); Cocaine Screen,Urine Negative ng/mL (Cutoff= 300); Opiate Screen,Urine Negative ng/mL (Cutoff=300); Phencyclidine Screen,Urine Negative ng/mL (Cutoff=25)
[2018-10-05] MEDS ORDERED: Melatonin 3 MG TABLET PO PRN (23:26)
[2018-10-06] MEDS: Ciprofloxacin HCL Soln 5 ML BOTTLE LEFT EYE SCH ×3 (04:00→08:17)
[2018-10-06 05:01] LABS: Hematocrit 36.4 % (37.5-50.1); Hemoglobin 11.7 g/dL (12.9-16.9); Mean Corpuscular HGB Conc 32.1 g/dL (31.6-35.5); Mean Corpuscular Hemoglobin 24.6 pg (28.0-33.3); Mean Corpuscular Volume 76.6 fL (83.0-100.0); Mean Platelet Volume 9.4 fL (9.4-12.4); Platelet Count 190 K/mcL (140-400); Red Blood Count 4.75 M/mcL (4.19-5.50); Red Cell Distribution Width 17.4 % (11.5-14.5)
[2018-10-06 05:14] LABS: Alanine Aminotransferase 15 Units/L (7-52); Albumin 3.8 g/dL (3.5-5.7); Albumin/Globulin Ratio 1.2 (1.1-2.2); Alkaline Phosphatase 81 Units/L (34-104); Aspartate Amino Transferase 15 Units/L (13-39); BUN/Creatinine Ratio 11 (6-26); Bilirubin,Total 0.5 mg/dL (0.3-1.0); Blood Urea Nitrogen 12 mg/dL (8-23); Calcium 9.2 mg/dL (8.6-10.3); Carbon Dioxide 25 mEq/L (23-29); Chloride 106 mEq/L (98-107); Chol/HDL Ratio 3.4 (0-4.9); Cholesterol 123 mg/dL (< 200); Globulin 3.2 g/dL (2.4-3.5); Glucose 116 mg/dL (70-105); HDL Cholesterol 36 mg/dL (40-59); LDL Cholesterol,Calculated 59 mg/dL (0-99); Magnesium 1.7 mg/dL (1.6-2.6); Osmolality,Calculated 287 (280-300); Phosphorous 3.5 mg/dL (2.7-4.5); Potassium 3.3 mEq/L (3.5-5.1); Sodium 138 mEq/L (136-145); Triglycerides 140 mg/dL (< 150); eGFR For Non-African Americans > 60 (> 60)
[2018-10-06] MEDS: *HR* Heparin 5,000 UNIT/ML VIAL SQ SCH (05:45)
[2018-10-06 06:51] VITALS: BP 132/76
[2018-10-06] MEDS: Insulin LISPRO 300 UNITS/3 ML VIAL SQ SCH (08:08)
[2018-10-06] MEDS: Thiamine (B-1) 100 MG TABLET PO SCH (08:16)
[2018-10-06] MEDS: Folic Acid 1 MG TABLET PO SCH (08:16)
[2018-10-06] MEDS: amLODIPine 5 MG TABLET PO SCH (08:16)
[2018-10-06] MEDS: Artificial Tears SOLN 15 ML BOTTLE LEFT EYE SCH (08:17)
[2018-10-06] MEDS ORDERED: Multivit/Ca/Min/Fe/FA 1 TAB TABLET PO SCH (09:00)
[2018-10-06] MEDS ORDERED: Magnesium Oxide 400 MG TABLET PO SCH (09:00)
[2018-10-06] MEDS ORDERED: Cholecalciferol (D-3) 1,000 UNIT TABLET PO SCH (09:00)
--- NOTE | 2018-10-06 09:36 | Neurology Progress Note ---
<Abram Noble J - Last Filed: 10/06/18 09:33> Date of Encounter: 10/06/18 Time of Encounter: 09:33 Assessment and Plan (1) Seizure-like activity Current Visit: Yes Status: Acute Seen in follow-up for a witnessed tonic-clonic activity. Patient has had tonic- clonic activity to-3 events. He has had workup at [facility] which did not reveal any organic cause of the seizures. Recent MRI 06/2018 unremarkable. EEG this admission did not identify indirect or abnormalities. However, and given repeat witnessed tonic-clonic activity I do feel that he has had recurrent seizure events. He does have a long-standing history of alcohol abuse greater than 50 years. Seizures most likely the result of long-term alcohol abuse. During this admission he was started on Keppra and he has not had any return of seizure activity. Spouse and patient provided with seizure medication and education regarding ABGs as well as medication compliance. He has been instructed not to drive or operate power equipment or heavy machinery until he h as been seizure-free for at least 6 months and had appropriate neurologic follow-up. Continue with seizure precautions while inpatient. Continue with Ativan for breakthrough seizures. From a neurological perspective the patient is okay for discharge. DC at the discretion of the primary team. Neurology will sign off. Subjective Principal diagnosis: seizures Interval history: The patient was seen in follow-up for seizures. Yesterday he was started on Keppra and reports that he has not had any more seizure activity since adm ission. Neuro exam remains nonfocal and nonlateralizing. at bedside and is able to discuss with both spouse and patient the importance of medication compliance. Further, I discussed avoiding rectum, driving, or operating heavy equipment until he has been 6 months seizure free and had appropriate neurologic follow-up. Objective - Constitutional Vitals: Temp Pulse Resp BP Pulse Ox 98.5 F 74 20 132/76 95 10/06/18 06:45 10/06/18 06:45 10/06/18 06:45 10/06/18 06:45 10/06/18 06:45 Exam: Examination: General Examination: *CONSTITUTIONAL: Alert and oriented x3, no acute distress *GENERAL APPEARANCE OF PATIENT appears healthy and well groomed *EYES: pupils equal, round, reactive to light and accommodation, conjunctiva clear *CARDIOVASCULAR RRR, S1, S2, no mumurs, rubs, or gallops, no peripheral edema, distal temperature normal, dorsalis pedis pulses normal. Musculoskeletal: *GAIT AND STATION normal, with normal Romberg testing, no abnormalities such as broad base gait or spasticity *ASSESSMENT OF MUSCLE STRENGTH IN THE UPPER AND LOWER EXTREMITIES bilateral deltoid, bicep, tricep, staging technician strength, hip flexors ,anterior tibialis, dorsoflexion of the foot 5/5 *MUSCLE TONE IN THE UPPER AND LOWER EXTREMITIES normal. No abnormal movements, fasciculations or atrophy identified. Neurological: *ORIENTATION to person, situation, time and place *RECURRENT AND REMOTE MEMORY intact *ATTENTION AND CONCENTRATION are normal *LANGUAGE FUNCTION no significant aphasia or dysarthia was noted. *FUND OF KNOWLEDGE aware of current events, past history, vocabulary *MENTAL attention span and concentration normal. *CN II optic fundi were normal, no papilledema noted. *CN III,IV, PERRLA extraocular eye movements were full, no nystagmus and no ptosis noted. *CN V shows normal sensation and jaw opens symmetrically. *CN VII shows normal facial movement symmetrically, upper and lower bilaterally. *CN VIII shows no significant hearing loss on exam *CN IX,,X palate elevated symmetrically *CN XI normal strength in the sternocleidomastoid muscles, symmetrical shoulder shrugging. *CN XII tongue protruded in the midline, with normal strength and movement. *SENSORY EXAMINATION light touch intact *REFLEXES: deep tendon reflexes were normal and symmetrical , grade 2/4 diffusely, no pathological reflexes were noted. *CEREBELLAR TESTING normal finger to nose, heel/knee/munguia *PAIN LEVEL 0/10 - Neurological Exam Sensorimotor examination: Present: intact Motor Examination: Present: full strength in all major muscle groups Motor examination - left side: 10/08: deltoids, biceps, triceps, wrist flexion, wrist extension, hip flexors, staging technician, quadriceps, tibialis Anterior, toe extension (EHL), plantarflexion Sensation intact: Present: intact, light touch Reflex and gait examination: intact Mental Status Examination: Present: awake, alert, oriented to person, oriented to place, oriented to time, follows commands appropriately, answers questions appropriately, no agnosia, no aphasia, no aproxia Cranial nerve examination: Present: PERRL, EOMI, visual shah intact, corneal reflexes brisk symmetrically, sensory to face intact, mastication intact, no facial asymmetry is present, no dysarthria, hearing is intact symmetrically, soft palate elevates bilaterally upon phonation, gag reflex intact, flexes SCM and trapezius muscles symmetrically with full power, tongue protrudes midline, no atrophy or facial fasiculations present Cerebellar examination: Present: no dysmetria, performs finger to nose and heel to munguia symmetrically without ataxia, no gait ataxia, no truncal ataxia, no difficulty with rapid alternating movements Results - Laboratory Findings CBC and BMP: 10/06/18 03:53 10/06/18 03:53 Abnormal lab findings: Abnormal lab results Hgb 11.7 g/dL (12.9-16.9) L 10/06/18 03:53 Hct 36.4 % (37.5-50.1) L 10/06/18 03:53 MCV 76.6 fL (83.0-100.0) L 10/06/18 03:53 MCH 24.6 pg (28.0-33.3) L 10/06/18 03:53 MCHC 31.4 g/dL (31.6-35.5) L 10/05/18 06:14 RDW 17.4 % (11.5-14.5) H 10/06/18 03:53 MPV 9.0 fL (9.4-12.4) L 10/05/18 06:14 Potassium 3.3 mEq/L (3.5-5.1) L 10/06/18 03:53 Carbon Dioxide 22 mEq/L (23-29) L 10/05/18 06:14 Est GFR (Non-Af Amer) 58 (> 60) L 10/05/18 06:14 Glucose 116 mg/dL (70-105) H 10/06/18 03:53 POC Glucose 135 mg/dL (70-99) H 10/05/18 11:22 36 mg/dL (40-59) L 10/06/18 03:53 > 22.3 ng/mL (3.0-16.0) H 10/05/18 12:03 100 mg/dL (Neg-Trace) H 10/05/18 06:06 500 mg/dL (Normal) H 10/05/18 06:06 Trace (Negative) H 05/02/19 06:06 3-5 per hpf (0-3) H 10/05/18 06:06 Ur Squamous Epith Cells Many per lpf (None-Few) H 10/05/18 06:06 Consult Discharge Plan - Plan Referrals: NONE,PCP [Primary Care Provider] - <Levar Young I - Last Filed: 10/06/18 09:57> Date of Encounter: 10/06/18 Assessment and Plan (1) Seizure-like activity Current Visit: Yes Status: Acute I have personally performed a face to face diagnostic evaluation, including HPI, EXAM, which is included in the Assesment and plan, which was discussed with Abram Noble CNP, I agree with the above outlined documentation. His cousin explained to the patient he agreed these with the plan emphasized compliance to avoid any seizure recurrence re: Patient was asked not to drive until seizure-free for 6 months. Patient was asked not to work in close proximity of machines with moving parts, not to swim unsupervised, not to take tub baths or showers with water accumulation, and not to work at high places. Levar Young MD. NeurologyI Objective - Constitutional Vitals: Temp Pulse Resp BP Pulse Ox 98.5 F 74 20 132/76 95 10/06/18 06:45 10/06/18 06:45 10/06/18 06:45 10/06/18 06:45 10/06/18 06:45 Results - Laboratory Findings CBC and BMP: 10/06/18 03:53 10/06/18 03:53 Abnormal lab findings: Abnormal lab results Hgb 11.7 g/dL (12.9-16.9) L 10/06/18 03:53 Hct 36.4 % (37.5-50.1) L 10/06/18 03:53 MCV 76.6 fL (83.0-100.0) L 10/06/18 03:53 MCH 24.6 pg (28.0-33.3) L 10/06/18 03:53 MCHC 31.4 g/dL (31.6-35.5) L 10/05/18 06:14 RDW 17.4 % (11.5-14.5) H 10/06/18 03:53 MPV 9.0 fL (9.4-12.4) L 10/05/18 06:14 Potassium 3.3 mEq/L (3.5-5.1) L 10/06/18 03:53 Carbon Dioxide 22 mEq/L (23-29) L 10/05/18 06:14 Est GFR (Non-Af Amer) 58 (> 60) L 10/05/18 06:14 Glucose 116 mg/dL (70-105) H 10/06/18 03:53 POC Glucose 135 mg/dL (70-99) H 10/05/18 11:22 36 mg/dL (40-59) L 10/06/18 03:53 > 22.3 ng/mL (3.0-16.0) H 10/05/18 12:03 100 mg/dL (Neg-Trace) H 10/05/18 06:06 500 mg/dL (Normal) H 10/05/18 06:06 Trace (Negative) H 10/05/18 06:06 3-5 per hpf (0-3) H 10/05/18 06:06 Ur Squamous Epith Cells Many per lpf (None-Few) H 10/05/18 06:06
--- NOTE | 2018-10-06 10:14 | Discharge Summary ---
<Tim Levi - Last Filed: 10/06/18 10:28> - NOTES TO OUTPATIENT PROVIDER Notes to Outpatient Provider: Started Keppra 500mg PO BID Orders not resulted at time of discharge: Pending orders 10/05/18 10:31 EKG [ECG 12 lead ECG] [ECG] Stat 10/05/18 10:32 VDRL Stat Date of Encounter: 10/06/18 Time of Encounter: 10:11 Hospital course: Mr. Arauz is a 68 year old male with history of diabetes, heavy alcohol use history but quit 12 months ago, prostate cancer s/p prostate surgery, presented to the emergency department with seizure like activity. Patient cannot recall any of the events and the history was obtained from and daughter. As per , he got up about 11:30 PM and was seen in the [facility] and when asked what he is doing he could not respond. He later had an episode of urinary incontinence which was unusual for him, so she changed him and placed him back in bed. At about 4 AM, heard a loud thump and found him laying on the floor unresponsive with abnormal movement of his bilateral upper extremities. Patient went through episodes of tonic-clonic contracture for 2-3 minutes. There was no foaming of the mouth or further episodes of incontinence. It took ambulance about 30 minutes to get to the home and he remained confused and not responsive to her questions. Patient cannot recall any event prior, during, or after his seizure-like activity. He has had two other similar episodes since last December, when he quit alcohol use. This was also the time when he had his prostate surgery. reports worsening memory since these events. Deny any head trauma or family history of seizure. He has been worked up at [facility] and [facility] without any final diagnosis. He has an appointment with the cognitive physician this week. Patient also has a long history of alcoholic abuse now he drinks only 1-2 beers a day he had been in the rehabilitation for detoxification in the past. He denies any history of syphilis, no sick contacts, denies any history of strokes. He denies fever, chills, nausea, vomiting, diarrhea, chest pain, palpitations, abdominal pain, cold or heat intolerance, recent head trauma. He denies headache, loss of vision. Currently has pink eye. CT head and cervical spine have been unremarkable. EEG was also unremarkable. Neurology recommends starting Keppra 500mg PO BID and follow up with his neurologist. Patient is agreeable. Discharge discussed with: patient, family - Time Spent with Patient Total time spent providing and/or coordinating discharge services: Time spent: Greater than 30 minutes - Discharge Medications Prescriptions: New LevETIRAcetam [Keppra] 500 mg PO BID #60 tablet Continued Pantoprazole Sodium 40 mg PO BID Multivitamin [One Daily Essential] 1 tab PO DAILY Cholecalciferol (D-3) [Vitamin D] 2,000 unit PO DAILY Atenolol [Tenormin] 25 mg PO BID Aspirin Enteric Coated [Aspirin EC] 81 mg PO QPM amLODIPine [Norvasc] 5 mg PO DAILY Metformin HCl [Glucophage Xr] 500 mg PO BID Rosuvastatin Calcium [Crestor] 40 mg PO DAILY Ferrous Sulfate 325 mg PO DAILY Magnesium Oxide [Mag-Ox] 400 mg PO DAILY Insulin Glargine,Hum.rec.anlog [Lantus Solostar] 12 - 13 units SQ HS Home Medications: Aspirin Enteric Coated [Aspirin EC] 81 mg PO QPM 03/16/18 [History] Atenolol [Tenormin] 25 mg PO BID 03/16/18 [History] Cholecalciferol (D-3) [Vitamin D] 2,000 unit PO DAILY 03/16/18 [History] Multivitamin [One Daily Essential] 1 tab PO DAILY 03/16/18 [History] Pantoprazole Sodium 40 mg PO BID 03/16/18 [History] amLODIPine [Norvasc] 5 mg PO DAILY 03/16/18 [History] Ferrous Sulfate 325 mg PO DAILY 06/22/18 [History] Magnesium Oxide [Mag-Ox] 400 mg PO DAILY 06/22/18 [History] Metformin HCl [Glucophage Xr] 500 mg PO BID 06/22/18 [History] Rosuvastatin Calcium [Crestor] 40 mg PO DAILY 06/22/18 [History] Insulin Glargine,Hum.rec.anlog [Lantus Solostar] 12 - 13 units SQ HS 10/05/18 [History] LevETIRAcetam [Keppra] 500 mg PO BID #60 tablet 10/06/18 [Rx] Allergies/Adverse Reactions: Allergy/AdvReac Type Severity Reaction Status Date / Time No Known Allergies Allergy Verified 10/05/18 17:30 Date of admission: 10/05/18 09:29 Primary care physician: PCP NONE Consults: 10/05/18 09:04 Consult to Neurology [CONS] Stat Consulting Provider: Neurology [facility] Reason for Consult: seizure Time Notified: 09:05 Call Completed: Yes 10/05/18 13:21 Consult to Interpret Exam [CONS] Routine Consulting Provider: Levar Young I Consult to Interpret Exam: Interpret Sleep Study Discharging clinician: Tim Levi Anticipated date of discharge: 10/06/18 - Constitutional Vitals: Temp Pulse Resp BP Pulse Ox 98.5 F 74 20 132/76 95 10/06/18 06:45 10/06/18 06:45 10/06/18 06:45 10/06/18 06:45 10/06/18 06:45 General appearance: Present: A&O X 3 Exam: as below - Head Head exam: Present: atraumatic, normocephalic - Eye Eye exam: Present: PERRL, conjuntiva pink, sclera anicteric Pupils: Present: PERRL - Neck Neck exam general surgery: Present: supple, trachea midline. Absent: lymphadenopathy - Respiratory Respiratory exam: Present: CTAB. Absent: accessory muscle use, rales, rhonchi, wheezes - Cardiovascular Cardiovascular exam: Present: RRR, +S1, +S2. Absent: diastolic murmur, gallop, rubs, systolic murmur - GI/Abdominal GI/Abdominal exam: Present: normal bowel sounds, soft, no peritoneal signs. Absent: distended, tenderness - Extremities Exam Extremities exam: Present: warm, radial pulses palpable and symmetrical. Absent: calf tenderness, cyanotic, pedal edema - Neurological Exam Neurological exam: Present: CN II-XII intact, oriented X3, no focal deficits. Absent: pronater drift, facial droop, speech deficit - Skin Skin exam: Present: dry, intact - Patient Status Disposition: Home, Self-Care Condition: Good Functional capacity at discharge: independent ambulation Overall status at discharge: patient is back to baseline - Discharge Instructions Instructions: Conjunctivitis (DC), Non-epileptic Seizures (GEN) Follow Up With: eLvar Young MD [Partnered Physician] - (YOUR APPOINTMENT HAS BEEN REQUESTED. OUR OFFICES WILL CALL WITH AN APPOINTMENT TIME AND DATE.) Additional Instructions: Start Keppra 500mg twice daily. Follow up with your neurologist. Return to the emergency room if you have another seizure before your neurologist follow up. - Diet and Activity Activity: resume usual activities as tolerated <Sandip Srivastava - Last Filed: 10/06/18 13:41> Orders not resulted at time of discharge: Pending orders 10/05/18 10:31 EKG [ECG 12 lead ECG] [ECG] Stat 10/05/18 10:32 VDRL Stat Date of Encounter: 10/06/18 - Discharge Diagnosis (1) Seizure-like activity Priority: Primary Status: Acute (2) Acute encephalopathy Priority: Primary Status: Acute (3) DVT prophylaxis Priority: Secondary Status: Acute (4) History of ETOH abuse Priority: Secondary Status: Acute (5) IDDM (insulin dependent diabetes mellitus) Priority: Secondary Status: Acute (6) Conjunctivitis Priority: Secondary Status: Acute Qualifiers: Conjunctivitis type: acute Acute conjunctivitis type: unspecified Laterality: left Qualified Code(s): H10.32 - Unspecified acute conjunctivitis, left eye Hospital course: Mr. Arauz is a 68 year old male - Time Spent with Patient Total time spent providing and/or coordinating discharge services: Date of admission: 10/05/18 09:29 Primary care physician: PCP NONE Consults: 10/05/18 09:04 Consult to Neurology [CONS] Stat Consulting Provider: Neurology [facility] Reason for Consult: seizure Time Notified: 09:05 Call Completed: Yes 10/05/18 13:21 Consult to Interpret Exam [CONS] Routine Consulting Provider: Levar Young I Consult to Interpret Exam: Interpret Sleep Study - Constitutional Vitals: Temp Pulse Resp BP Pulse Ox 98.5 F 74 20 132/76 95 10/06/18 06:45 10/06/18 06:45 10/06/18 06:45 10/06/18 06:45 10/06/18 06:45 - Attending Attestation I examined this patient and my medical decision-making was reviewed with the Resident Physician Dr. Levi. I agree with the documented findings, disposition and treatment plan as described except to the extent set forth below. Mr. Arauz is a 68 year old male with history of diabetes, heavy alcohol use history but quit 12 months ago, prostate cancer s/p prostate surgery, presented to the emergency department with seizure like activity. He was admitted in the hospital and started him on IV Keppra. His EEG showed no epileptiform activity, however since pt has recurrent seizure activity Neuro recommend to cont Keppra and f.u with them as an out pt. I did counseling center director the pt about medication compliance and seizure instruction. Will d/c him home in stable condition today. Gen: A, A, O x 3 Chest: Diminished BS b.l, no crackles, No rales Heart: S1S2+ RRR No Murmurs Neuro: No focal neuro deficits noticed
== END 2018-10-06 12:28 | disposition home or self-care (01) ==
LOC: 3BNU 05:40 → EMEROOARM 05:40 → SUATTDRO 09:29 → 3BNU 10:50
PROVIDERS: ADMIT Internal Medicine; ATTEND Family Medicine